=== PATIENT | female | born 1995 | race Caucasian/White ===

== ENCOUNTER 2018-04-02 11:53 | Emergency (ER) | payer OTHER, SELFPAY ==
[2018-04-02 11:55] VITALS: BP 165/90; PULSE 125; RESP 16; TEMP 36.6; O2SAT 95; BMI 40.7
[2018-04-02] MEDS: 0.9% Normal Saline 1,000 ML 1000 ML IV (12:48)
[2018-04-02 13:02] LABS: Prothrombin Time (Protime)PT. 13.6 SECONDS (11.7-14.9)
[2018-04-02 13:03] LABS: Partial Thromboplast Time 26.7 Seconds (24.1-36.2)
[2018-04-02 13:08] LABS: Absolute Lymphocyte Count 1.79 X10^3/ul (0.83-4.51); Absolute Neutrophil Count 3.8 X10^3/uL (2.0-7.7); Basophil# 0.02 X10^3/uL; Basophil% 0.3 % (0-1); Eosinophil# 0.16 X10^3/uL; Eosinophils% 2.6 % (0-5); Hematocrit 35.8 % (37-47); Lymphocyte # 1.79 X10^3/ul (4.0); Lymphocyte % 28.9 % (19-41); Mean Corp Hgb Conc 30.7 g/gl (32-36); Mean Corpuscular Hgb 25.6 pg (27.0-32.0); Mean Corpuscular Volume 83.3 fL (81-99); Mean Platelet Vol. 11.9 fl (6.2-12.0); Monocyte# 0.46 X10^3/uL; Monocyte% 7.4 % (0-10); Neutrophil # 3.76 X10^3/uL (2.7-7.7); Neutrophil % 60.6 % (47-70); POSITIVE COUNT NO; POSITIVE DIFFERENTIAL NO; POSITIVE MORPHOLOGY NO; Platelet Count 195 K/mm3 (150-450); RBC Distribution Width CV 15.1 % (11.6-14.6); White Blood Count 6.2 K/mm3 (4.4-11.0)
[2018-04-02 13:11] LABS: Anion Gap 8 (5-15); BUN 7 mg/dL (7-18); BUN/Creat Ratio 10.1 RATIO (10-20); Calcium,Total 9.1 mg/dL (8.5-10.1); Chloride 112 mmol/L (98-107); Creatinine, Serum 0.69 mg/dL (0.55-1.02); EST Glomerular Filtration Rate 114 mL/min (>60); Est Glom Filt Rate - Afr Amer 138 mL/min (>60); Glucose 101 mg/dL (74-106); Potassium 4.2 mmol/L (3.5-5.1); Sodium Level 144 mmol/L (136-145)
[2018-04-02 13:16] LABS: Pregnancy, Serum, hCG Quali. NEGATIVE Negative (0-9 Nonpreg)
--- NOTE | 2018-04-02 14:01 | ED.DCSUM_ITS ---
- ER Visit Summary Date of Service: 04/02/18 Chief Complaint: Vaginal bleeding History of Present Illness: The patient is a 23 F with a history of irregular periods and problems with intermittent menorrhagia. She is scheduled to see Dr. Santiago next week. Patient reports a 2-week history of vaginal bleeding got very heavy over the past 2 days. She was having a lot of cramping 2 days ago, but is not having significant pain now. She called the office today and was advised to come to the emergency room. Physical Examination: Vital signs include a blood pressure of 165/90 with a heart rate of 125. Patient sitting upright in bed no acute distress. Head neck examination normal. Heart is regular but tachycardic. Lungs sounds clear. Abdomen is soft with no tenderness. Test Results: CBC was normal white count hemoglobin 11.0. No prior values available for comparison. Chemistry studies, coags, and test are all unremarkable. Emergency Department Course and Treatment: After IV fluids repeat heart rate is 96. I spoke with daughter Pamela and patient is to keep her appointment next week. Treatment Plan: [] Disposition: Discharge Impression: Menorrhagia This note was generated with [employer] dictation software. It may contain incorrect words, spelling, and punctuation that were not noted in review of the chart prior to signing ED Disposition - Plan for ED Patient: Chief Complaint: Vag Bleeding Referrals: Sohail Calderon MD [Primary Care Provider] -
--- NOTE | 2018-04-02 14:01 | ED.DEP ---
ED Disposition - Plan for ED Patient: Disposition: Home or Assisted Living Chief Complaint: Vag Bleeding Instructions: ED Bleeding Menstrual Heavy Referrals: Sohail Calderon MD [Primary Care Provider] - Mariaa Borrero MD [STAFF PHYSICIAN] - Keep Ziyad appointment
[2018-04-02 14:04] VITALS: PULSE 94; RESP 16; O2SAT 94
== END 2018-04-02 14:05 | disposition home or self-care (01) ==
PROVIDERS: Emergency Provider Emergency Medicine; Family Provider Family Medicine; PCP Family Medicine
DX: N92.0 Excessive and frequent menstruation with regular cycle (principal); Z72.0 Tobacco use
CPT/HCPCS: 80048; 84703; 85025; 85610; 85730; 96360; 99283; J7030; A4216

== ENCOUNTER → 2019-07-26 13:50 | Outpatient (CLI) | payer OTHER, SELFPAY ==
[2019-07-26 09:35] VITALS: BMI 40.6
[2019-07-26 16:21] LABS: Chlamydia Trachomatis by PCR Negative (Negative); Neisserai gonorrhoeae by PCR Negative (Negative); Probe Check PASS; Sample Adequacy Control PASS; Specimen Processing Control PASS
[2019-07-29 18:57] LABS: HPV Reflexed? NOT INDICATED
== END ==
PROVIDERS: PCP Family Medicine; Referring Provider Nurse Practitioner Women's Health; Visit Provider Nurse Practitioner Women's Health
DX: A64 Unspecified sexually transmitted disease (principal); Z12.4 Encounter for screening for malignant neoplasm of cervix
CPT/HCPCS: 87491; 87591; 88175; G0145

== ENCOUNTER → 2019-11-04 13:33 | Outpatient (CLI) | payer OTHER, SELFPAY ==
[2019-11-04 11:55] VITALS: BMI 40.6
[2019-11-07 16:08] LABS: Chlamydia By Nucleic Acid AMP Positive (Negative)
[2019-11-08 04:48] LABS: Gonococcus By Nucleic Acid AMP Negative (Negative)
== END ==
PROVIDERS: PCP Family Medicine; Visit Provider Obstetrics & Gynecology
DX: O09.90 Supervision of high risk pregnancy, unspecified, unspecified trimester (principal); Z3A.00 Weeks of gestation of pregnancy not specified
CPT/HCPCS: 87491; 87591

== ENCOUNTER → 2019-11-10 14:48 | Outpatient (CLI) | payer OTHER, SELFPAY ==
[2019-11-04 11:55] VITALS: BMI 40.6
[2019-11-10 15:22] LABS: Absolute Lymphocyte Count 1.27 X10^3/uL (0.83-4.51); Absolute Neutrophil Count 4.2 X10^3/uL (2.0-7.7); Basophil# 0.03 X10^3/uL; Basophil% 0.5 % (0-1); Eosinophil# 0.09 X10^3/uL; Eosinophils% 1.5 % (0-5); Hematocrit 36.1 % (37-47); Hemoglobin 11.1 g/dL (12.0-15.0); Lymphocyte # 1.27 X10^3/ul (4.0); Lymphocyte % 21.1 % (19-41); Mean Corp Hgb Conc 30.7 g/dL (32-36); Mean Corpuscular Hgb 23.5 pg (27.0-32.0); Mean Corpuscular Volume 76.3 fL (81-99); Mean Platelet Vol. 11.8 fl (6.2-12.0); Monocyte# 0.41 X10^3/uL; Monocyte% 6.8 % (0-10); NRBC Flagged by Analyzer 0 % (0-5); Neutrophil % 69.8 % (47-70); Platelet Count 175 K/mm3 (150-450); RBC Distribution Width CV 17.7 % (11.6-14.6); RBC Distribution Width SD 48.2 fl (35.1-43.9); Red Blood Count 4.73 M/mm3 (4.2-5.4)
[2019-11-10 15:38] LABS: Glucose Challenge Gest 1H 50g 134 mg/dL (70-140)
[2019-11-11 11:46] LABS: HIV - WCH Non-Reactive (Nonreactive); Hepatitis B Surface Antigen Non-Reactive (Nonreactive); Hepatitis C Antibody Non-Reactive (Nonreactive); Rubella IgG 91.9 IU/mL
[2019-11-17 01:33] LABS: Rapid Plasmin Reagin (RPR) NONREACTIVE (NONREACTIVE)
== END ==
PROVIDERS: PCP Family Medicine; Referring Provider Obstetrics & Gynecology; Visit Provider Obstetrics & Gynecology
DX: O09.90 Supervision of high risk pregnancy, unspecified, unspecified trimester (principal); Z3A.00 Weeks of gestation of pregnancy not specified
CPT/HCPCS: 36415; 82950; 85025; 86592; 86703; 86762; 86803; 86850; 86900; 86901; 87340

== ENCOUNTER → 2019-11-30 17:07 | Outpatient (CLI) | payer OTHER, SELFPAY ==
[2019-11-30 09:09] VITALS: BMI 40.6
[2019-11-30 18:54] LABS: Amphetamine Urine VISTA NEGATIVE (<1000 ng/mL); Barbiturate Urine VISTA NEGATIVE (< 200 ng/mL); Benzodiazepine Urine VISTA NEGATIVE (< 200 ng/mL); Cocaine Urine VISTA NEGATIVE (< 300 ng/mL); Ecstacy Urine VISTA NEGATIVE (< 500 ng/mL); Methadone Urine VISTA NEGATIVE (< 300 ng/mL); PCP Urine VISTA NEGATIVE (< 25 ng/mL); THC Urine VISTA NEGATIVE (< 50 ng/mL); Vista UDS pH Range 7
== END ==
PROVIDERS: PCP Family Medicine; Referring Provider Obstetrics & Gynecology; Visit Provider Obstetrics & Gynecology
DX: O09.90 Supervision of high risk pregnancy, unspecified, unspecified trimester (principal); Z3A.00 Weeks of gestation of pregnancy not specified
CPT/HCPCS: 80307; 87086; 87088

== ENCOUNTER → 2020-03-21 10:14 | Outpatient (CLI) | payer OTHER, SELFPAY ==
[2020-03-21 09:52] VITALS: BMI 38.9
[2020-03-21 10:42] LABS: Absolute Neutrophil Count 5.8 X10^3/uL (2.0-7.7); Basophil# 0.02 X10^3/uL; Basophil% 0.3 % (0-1); Eosinophil# 0.08 X10^3/uL; Hematocrit 34.6 % (37-47); Hemoglobin 11.7 g/dL (12.0-15.0); Mean Corp Hgb Conc 33.8 g/dL (32-36); Mean Corpuscular Hgb 30.8 pg (27.0-32.0); Mean Corpuscular Volume 91.1 fL (81-99); Mean Platelet Vol. 11.9 fl (6.2-12.0); Monocyte# 0.38 X10^3/uL; NRBC Flagged by Analyzer 0 % (0-5); POSITIVE MORPHOLOGY YES; Platelet Count 158 K/mm3 (150-450); RBC Distribution Width CV 13.4 % (11.6-14.6); RBC Distribution Width SD 44.5 fl (35.1-43.9); White Blood Count 7.6 K/mm3 (4.4-11.0)
[2020-03-21 10:43] LABS: Differential Indicated SCAN CRITERIA MET
[2020-03-21 10:52] LABS: Glucose Challenge Gest 1H 50g 140 mg/dL (70-140)
[2020-03-21 10:55] LABS: Differential Comment SCANNED
== END ==
PROVIDERS: PCP Family Medicine; Referring Provider Obstetrics & Gynecology; Visit Provider Obstetrics & Gynecology
DX: O09.90 Supervision of high risk pregnancy, unspecified, unspecified trimester (principal); Z13.1 Encounter for screening for diabetes mellitus; Z3A.00 Weeks of gestation of pregnancy not specified
CPT/HCPCS: 36415; 82950; 85025

== ENCOUNTER → 2020-03-29 09:40 | Outpatient (CLI) | payer OTHER, SELFPAY ==
[2020-03-21 09:52] VITALS: BMI 38.9
[2020-03-29 10:52] LABS: Glucose GTT-Gestation. Fasting 76 mg/dL (<105)
[2020-03-29 11:28] LABS: Glucose GTT-Gestational 1 Hr 139 mg/dL (<190)
[2020-03-29 12:52] LABS: Glucose GTT-Gestational 2 Hr 89 mg/dL (<165)
[2020-03-29 13:55] LABS: Glucose GTT-Gestational 3 Hr 105 L (<145)
== END ==
PROVIDERS: PCP Family Medicine; Referring Provider Obstetrics & Gynecology; Visit Provider Obstetrics & Gynecology
DX: O99.810 Abnormal glucose complicating pregnancy (principal); Z3A.00 Weeks of gestation of pregnancy not specified
CPT/HCPCS: 36415; 82951; 82952

== ENCOUNTER → 2020-05-24 13:01 | Outpatient (CLI) | payer OTHER, SELFPAY ==
[2020-05-24 10:25] VITALS: BMI 40.5
== END ==
PROVIDERS: PCP Family Medicine; Referring Provider Obstetrics & Gynecology; Visit Provider Obstetrics & Gynecology
DX: O09.90 Supervision of high risk pregnancy, unspecified, unspecified trimester (principal); Z3A.00 Weeks of gestation of pregnancy not specified
CPT/HCPCS: 87081

== ENCOUNTER → 2020-06-06 14:13 | Outpatient (CLI) | payer OTHER, SELFPAY ==
[2020-06-06 09:51] VITALS: BMI 40.6
== END ==
PROVIDERS: PCP Family Medicine; Visit Provider Obstetrics & Gynecology
DX: Z11.59 Encounter for screening for other viral diseases (principal)
CPT/HCPCS: 87635; C9803; U0002

== ENCOUNTER 2020-06-20 18:55 | Inpatient (IN) | payer OTHER, SELFPAY ==
[2020-06-18 11:01] VITALS: BMI 41.0
[2020-06-20 19:34] VITALS: BP 137/80; PULSE 97
[2020-06-20 19:40] VITALS: PULSE 86; TEMP 36.8; O2SAT 96
[2020-06-20 19:43] VITALS: BMI 39.7
[2020-06-20 19:57] VITALS: BP 130/75; PULSE 85
[2020-06-20] MEDS: Lactated Ringers 1,000 ML 50 ML IV (20:00)
[2020-06-20 20:16] LABS: Basophil# 0.02 X10^3/uL; Basophil% 0.3 % (0-1); Eosinophil# 0.02 X10^3/uL; Eosinophils% 0.3 % (0-5); Hematocrit 32.5 % (37-47); Hemoglobin 10.6 g/dL (12.0-15.0); Lymphocyte % 16.5 % (19-41); Mean Corp Hgb Conc 32.6 g/dL (32-36); Mean Corpuscular Hgb 30.3 pg (27.0-32.0); Mean Corpuscular Volume 92.9 fL (81-99); Mean Platelet Vol. 12.8 fl (6.2-12.0); Monocyte# 0.51 X10^3/uL; Monocyte% 7.7 % (0-10); NRBC Flagged by Analyzer 0 % (0-5); Neutrophil # 4.96 X10^3/uL (2.7-7.7); Neutrophil % 74.6 % (47-70); Platelet Count 160 K/mm3 (150-450); RBC Distribution Width CV 13.1 % (11.6-14.6); RBC Distribution Width SD 43.9 fl (35.1-43.9); White Blood Count 6.7 K/mm3 (4.4-11.0)
[2020-06-20] MEDS: Oxytocin 30 units/NS 500 ml 30 UNITS/500 ML IV.SOLN IV (20:55)
[2020-06-20 21:01] VITALS: BP 133/73; PULSE 88; TEMP 36.8
--- NOTE | 2020-06-20 22:08 | HP.PCM_ITS ---
- Problem List (1) Encounter for induction of labor Status: Acute (2) 36 weeks gestation of Status: Acute Comment: electronic covid test ordered 05/22/20 (3) Abnormal glucose affecting Status: Acute Comment: NL 3gtt (4) Choroid plexus cyst of fetus Status: Acute Comment: right 5.1 x 5.8 x 5.4mm. declines genetic testing. (5) History of tetanus, diphtheria, and acellular pertussis booster vaccination (Tdap) Status: Acute Comment: 03/21/20 (6) Influenza vaccination declined Status: Acute (7) Lab test positive for detection of COVID-19 virus Status: Acute Comment: ASA 81mg daily (8) Obesity affecting Status: Acute Qualifiers: Comment: Early 1h gtt nl. encouraged healthy weight gain. (9) Status: Acute Qualifiers: Comment: NIPT, carrier, and NTD screening declined after further discussion. anatomy reviewed (10) Supervision of high risk , antepartum Status: Acute Comment: PRR KEITH 06/16/20 girl Cruz SHANTELL not involved. 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 OB Visit KEITH Calculator Estimated Delivery Date Method Current WG Current Estimate 06/16/20 Ultrasound #1 40w 2d Other Estimates 06/06/20 LMP (Certain) 41w 5d Expected Delivery Route/Plan Labor Preferences- CB/BF classes: encouraged labor support person: Kristen(sister) labor intervention preferences: open to standard interventions pain management options preferred: epidural cut cord/catch: cord, maybe deliver : no PP control planned: OCPs discussed possible routes of delivery and associated risks: discussed possible delivery modalities and possible indications for each including R/B/A of , VAVD, FAVD, and CS. questions answered. special requests: none Specific Issue/Plans flu vaccine: declines tdap vaccine: given rhogam: na LARC form signed: yes movement and labor precautions reviewed. Problem list reviewed and updated with the most current plan of care details and appropriate orders placed. Relevant counseling for the gestational age provided. Continue routine care and follow up unless otherwise noted in visit notes/problem list details Initial Weight: 248 lb Date EGA Weight BP Urine Prot Glucose FHR FuHt Pres Dilation Effaced St Visit Note 11/30/19 11w 4d 245 lb (-3 lb) 134/86 168 GP - KEITH based on US done last visit. No cramping or bleeding. 12/29/19 15w 5d 240 lb (-8 lb) 138/84 Trace Negative 150 SM- no vb cramping 01/25/20 19w 4d 245 lb 6 oz (-2 lb 10 oz) 134/76 Negative Negative 145 GP - no cramping or bleeding. Anatomy scan tomorrow - planning gender reveal dinner with her family. 02/23/20 23w 5d 242 lb (-6 lb) 115/76 115/76 Negative Negative 145 SM- no vb lof good fm no regular ctx 03/21/20 27w 4d 249 lb (+16 oz) 134/74 Negative 1000 g/dL 149 29 MH-NO VB, LOF. Good FM. 28 wk labs, tdap, LARC 04/04/20 29w 4d 250 lb 4 oz (+2 lb 4 oz) 120/76 Negative Negative 150 30 GP - no LOF, VB, DFM, ctx. 3h GCT nl. 04/19/20 31w 5d 248 lb 8 oz (+8 oz) 110/80 Negative Negative 145 32 SM- no vb lof good fm no regular ctx 05/03/20 33w 5d 251 lb (+3 lb) 122/76 145 34 Sm- no vb lof good fm no regular ctx 05/17/20 35w 5d 255 lb 2 oz (+7 lb 2 oz) 122/76 Negative Negative 145 35 GP - no LOF, VB, DFM, regular ctx. Discussed labor preferences and routes of delivery. 05/24/20 36w 5d 259 lb (+11 lb) 108/73 Negative Negative 145 37 Cephalic 0.5 SM- no vb lof good fm no regular ctx gbs done 05/31/20 37w 5d 261 lb (+13 lb) 118/82 140 38 Cephalic SM- no vb lof good fm n reuglar ctx 06/06/20 38w 4d 260 lb (+12 lb) 120/78 1+ Negative 140 39 Cephalic GP - no LOF, VB, DFM, ctx. Denies complaints. 06/18/20 40w 2d 262 lb (+14 lb) Negative Negative 130 40 Cephalic 1 50 -3 GP - no LOF, VB, DFM, ctx . IOL scheduled 06/20 ACOG First Trimester First Trimester: Discussed Second Trimester Second Trimester: Signs and Symptoms of Labor, Selecting a care provider, Reproductive Life Planning, Care Planning, Depression/Anxiety and Intimate Partner Violence; discussed Tobacco Cessation Diagnostics Diagnostics Diagnostics Gest Glucose Tolerance MG/DL 03/29/20 Glucose 1 Hr 50 gm 140 mg/dL (70-140) 03/21/20 Hgb 11.7 g/dL (12.0-15.0) L 03/21/20 Hct 34.6 % (37-47) L 03/21/20 Details: HIV: Urine Culture: Sequential Screen: NIPT Screen: [employer] system reviewed and no additional complaints, except as docu Eyes Reports system reviewed and no additional complaints, except as docu ENT Reports system reviewed and no additional complaints, except as docu Card Reports system reviewed and no additional complaints, except as docu Resp Reports system reviewed and no additional complaints, except as docu GI Reports system reviewed and no additional complaints, except as docu Reports system reviewed and no additional complaints, except as docu, Denies abnormal vaginal bleeding, Denies painful urination, Denies pelvic pain, Denies vaginal discharge, Denies vaginal odor, Denies vaginal itching Musc Reports system reviewed and no additional complaints, except as docu Skin/Breast Reports system reviewed and no additional complaints, except as docu Neuro Yes system reviewed and no additional complaints, except as docu Psych Reports system reviewed and no additional complaints, except as docu Endo Reports system reviewed and no additional complaints, except as docu Exam Const General: cooperative, healthy appearing, comfortable, no acute distress, well developed, well groomed Nutritional Appearance: average body habitus, well nourished Orientation: alert, awake, oriented x3 [facility] Head: normal to inspection, normocephalic, atraumatic Eyes Pupils: PERRL, accommodation normal Resp Effort & Inspection: normal respiratory effort, able to speak in complete sentences, symmetric chest movement Cardio Rate: regular rate GI Palpation: soft, no guarding, no masses, nontender Skin General: no rashes or lesions noted, elasticity normal, turgor normal Neuro General: alert, awake, oriented x3 Cranial Nerves: CN's II-XI intact bilaterally, sense of smell intact, PERRL, accommodation normal, EOM intact bilaterally Speech: speech normal Gait: normal gait Psych Appearance: grossly normal, well kempt Mental Status: mental status grossly normal Mood: congruent mood Affect: normal affect Speech and Movement: speech and movement normal Attitude: cooperative Thought Process: normal Thought Content: normal Judgment: judgment good Results POC Urinalysis 2 Dip (Clinic) Office Urine Glucose Negative Last Edit by Irma Garsia on 06/18/20 11:11 Office Urine Protein Negative Last Edit by Irma Garsia on 06/18/20 11:11 Assessment & Plan Problems 1. Lab test positive for detection of COVID-19 virus U07.1 ASA 81mg daily 2. 36 weeks gestation of Z3A.36 electronic covid test ordered 05/22/20 3. Abnormal glucose affecting O99.810 NL 3gtt 4. History of tetanus, diphtheria, and acellular pertussis booster vaccination (Tdap) Z92.29 03/21/20 5. Influenza vaccination declined Z28.21 6. Obesity affecting in third trimester O99.213 Early 1h gtt nl. encouraged healthy weight gain. 7. Choroid plexus cyst of fetus right 5.1 x 5.8 x 5.4mm. declines genetic testing. 8. Supervision of high risk , antepartum O09.90 PRR KEITH 06/16/20 girl Cruz STINSON not involved. Kristen- sister is support person 9. 40 weeks gestation of Z3A.40 NIPT, carrier, and NTD screening declined after further discussion. anatomy reviewed Patient presents IOL, plan management for with pitocin/AROM. Pain management: plans epidural. GBS negative. Management of any complications: none I have reviewed the [facility] and made any clinically relevant updates. UPDATE- I have seen the patient and performed any clinically relevant updates to the history and physical exam. Caryl Hernandez MD
[2020-06-20 22:41] VITALS: BP 123/80; PULSE 80; TEMP 36.6
[2020-06-20 23:49] VITALS: BP 129/67; PULSE 86; TEMP 37.1
[2020-06-21] VITALS (65 sets, daily range): BP systolic 106–149; BP diastolic 53–101; PULSE 74–128; TEMP 35.8–37.4; O2SAT 92–100
[2020-06-21] MEDS: Lactated Ringers 500 ML 999 ML IV ×2 (00:42→11:18)
[2020-06-21] MEDS: fentaNYL-bupivacaine (epidural) 100 ML BAG EPIDURAL ×4 (01:46→16:23)
[2020-06-21] MEDS: Lactated Ringers 1,000 ML 200 ML IV ×3 (04:20→15:35)
[2020-06-21 18:13] LABS: Chlamydia Trachomatis by PCR Negative (Negative); Neisserai gonorrhoeae by PCR Negative (Negative); Probe Check PASS; Sample Adequacy Control PASS; Specimen Processing Control PASS
[2020-06-21] MEDS: Oxytocin 30 units/NS 500 ml 30 UNITS/500 ML IV.SOLN 334 UNITS IV (20:01)
[2020-06-21] MEDS: Methylergonovine 0.2 MG/ML Ampul IM (20:04)
--- NOTE | 2020-06-21 21:19 | OP.PCM_ITS ---
Problem List (1) Encounter for induction of labor Status: Acute (2) 36 weeks gestation of Status: Acute Comment: electronic covid test ordered 05/22/20 (3) Abnormal glucose affecting Status: Acute Comment: NL 3gtt (4) Choroid plexus cyst of fetus Status: Acute Comment: right 5.1 x 5.8 x 5.4mm. declines genetic testing. (5) History of tetanus, diphtheria, and acellular pertussis booster vaccination (Tdap) Status: Acute Comment: 03/21/20 (6) Influenza vaccination declined Status: Acute (7) Lab test positive for detection of COVID-19 virus Status: Acute Comment: ASA 81mg daily (8) Obesity affecting Status: Acute Qualifiers: Comment: Early 1h gtt nl. encouraged healthy weight gain. (9) Status: Acute Qualifiers: Comment: NIPT, carrier, and NTD screening declined after further discussion. anatomy reviewed (10) Supervision of high risk , antepartum Status: Acute Comment: PRR KEITH 06/16/20 girl Cruz STINSON not involved. Kristen- sister is support person Vaginal Delivery Maternal Presentation: Medically Indicated Induction 25-year-old at 40 weeks gestation admitted for induction of labor for late term and maternal obesity. Patient was induced with Pitocin. Patient had been pushing for 4 hours with good maternal effort and was becoming exhausted. The recommendation was made to proceed with a forceps assisted vaginal delivery. Patient voiced understanding and agreed to proceed. Method of Induction: Pitocin Medical Reason for Induction: Maternal Medical Condition: list: - Obesity, Post term Amniotic Membrane Rupture Type: Artificial Amniotic Fluid Description: Clear Final KEITH: 06/16/20 Gestational age: 40 Weeks and 5 Days Date of Procedure: 06/21/20 Pre-Operative Diagnosis: Term , induction for late term and obesity, maternal exhaustion Post-Operative Diagnosis: Same, mild shoulder dystocia Surgery/ Procedure Performed: Forceps Assisted Vaginal Delivery Type of Anesthesia: Epidural Description of Procedure: Patient was pushing with deep variable decelerations with pushing. Recommendation was made to proceed with a forceps assisted vaginal delivery. The maternal bladder had just been changed and Lozano catheter was removed. Additional help was called to the room. Soils Analyst was called to the room. Anesthesia level was found to be adequate. Jacob-Krista forceps were applied without difficulty and placement was noted to be correct. The head delivered with 1 contractions 1 pulls. The head was delivered atraumatically and no nuchal cord was noted. At this point, turtle sign was noted and difficulty was noted in delivery of the anterior arm. The shoulders were noted to be transverse and did not restitute correctly. The room was notified of the presence of a shoulder dystocia. Amy maneuver was performed and suprapubic pressure was applied. Anterior Guanako maneuver was performed with successful delivery of the anterior then posterior shoulders. No excessive force was used at any point. Total time from delivery of head to delivery of shoulder was 50 seconds. The rest of the infant was delivered and the cord was clamped and cut and the infant was taken to the warmer. Gentle traction was applied to the cord and the placenta delivered spontaneously immediately following it was noted to be intact with three-vessel cord. The perineum and vagina were inspected and a midline 3c perineal laceration was noted. The internal anal sphincter was repaired in a running fashion using 3-0 Vicryl Rapide suture. The external anal sphincter was reapproximated using 4 [id number] of 2-0 Vicryl suture. The second portion of the repair was repaired in the standard fashion using 3-0 Vicryl Rapide suture. Multiple [id number] of 2-0 Vicryl were employed to obtain hemostasis. Uterine atony was noted during the repair and the patient was given 1 dose of IM Methergine. EBL was 400 cc. Patient and infant tolerated delivery well. The events of the delivery were discussed with the patient. Given that this was a mild shoulder dystocia and was likely related to the way the shoulders restituted, I feel that the patient would be a good candidate for a vaginal delivery in the future. Presentation: Vertex, MINI Placental Delivery Description: Spontaneous Placenta Disposition: [facility] Cord Vessel Description: 3 Vessels Cord Entanglement: None Drain: Lozano to straight drain Estimated Blood Loss: 400 Infant A gender: Female Episiotomy Description: None Laceration: Midline, Perineal Extension/lac, 3rd degree Medications given after delivery: IV Pitocin, IM Methergin Complications: - - Mild shoulder dystocia Multi Select Codes - Urinary/Genital Urinary/Genital CPT Codes: 28979 Vaginal Delivery global pkg - Forceps assisted
--- NOTE | 2020-06-21 21:27 | DCINST_ITS ---
Discharge Diet: No Restrictions Discharge Activity: Return to Normal Activity, May not drive while taking narcotic pain medications., May Shower May resume sexual activity in: 4-6 weeks Additional Activity Instructions:: Nothing in the vagina for 4-6 weeks. You may return to work/school in 6 weeks. Call your doctor if your incision/area has: Continuous Slow Oozing, Sudden Increased Bleeding, Increased Pain/ Swelling, Increased Redness, Foul Smelling Discharge Additional Instructions: If you experience any of the following, contact your healthcare provider. * Bleeding that soaks a pad every hour for 2 hours * Fever 100.4 or higher * Unrelieved incision or abdominal pain * Swelling, redness, discharge or bleeding from your incision or episiotomy site * Your incision begins to separate * Problems urinating (including inability to urinate or burning while urinating). * Visual changes * Severe headache * Flu-like symptoms * Pain or redness in one of both of your breasts * Pain, warmth, tenderness or swelling in your legs, especially the calf area * Frequent nausea and vomiting * Symptoms of depression or anxiety If you experience any of the following, call 911 or go to the nearest Emergency Room. * Chest pain * Problems breathing * Seizure activity * Partial or complete paralysis of a body part, slurred speech, weakness or drooping of the face, or a sudden inability to walk or hold your balance Allergies/Adverse Reactions: Allergies No Known Allergies Allergy (Verified 06/20/20 19:44) Medications to take at Discharge Famotidine [Pepcid] 20 mg PO DAILY 06/20/20 Ferrous Sulfate [Iron] 325 mg PO DAILY 06/20/20 Pnv No.103/Folic/Om3s/Fish Oil [ Gummies] 1 tablet PO DAILY 06/20/20 When: Call to make an appointment with your doctor in 6 weeks. If you had elevated Blood Pressure or 4th degree laceration you will need to be seen in 2 weeks. Primary Care Physician: Sohail Calderon MD [Primary Care Provider] - Test Results: Test results from this visit will be discussed in further detail at your follow- up appointment, if applicable.
[2020-06-21] MEDS: Docusate Sodium 100 MG Capsule PO (22:09)
[2020-06-21] MEDS: Acetaminophen 500 MG Tablet 1000 MG PO (22:09)
[2020-06-22] VITALS (7 sets, daily range): BP systolic 107–131; BP diastolic 61–85; PULSE 81–100; RESP 16–18; TEMP 35.9–37
[2020-06-22] MEDS: Naproxen 250 MG Tablet 500 MG PO (03:04)
[2020-06-22] MEDS: Acetaminophen 500 MG Tablet 1000 MG PO (06:22)
[2020-06-22] MEDS: Famotidine 20 MG Tablet PO (11:03)
[2020-06-22] MEDS: Docusate Sodium 100 MG Capsule PO ×2 (11:03→21:48)
--- NOTE | 2020-06-22 12:41 | PN.OBGYN_ITS ---
Patient Problems: Active and Suspected Problems (Last Reviewed 06/18/20 @ 11:01 by Irma Garsia) History of tetanus, diphtheria, and acellular pertussis booster vaccination (Tdap) (Acute) 03/21/20 Influenza vaccination declined (Acute) Subjective: Patient doing well without complaints. Tolerating PO. Ambulating and voiding wit hout difficulty. Breast feeding well. Denies chest pain, shortness of breath, calf pain/swelling, fevers, chills, lightheadedness. - Physical Exam Vitals/I&O's: Vital Signs Temp Pulse Resp BP Pulse Ox 96.7 F L 83 18 107/66 98 06/22/20 11:01 06/22/20 11:01 06/22/20 11:06/22/20 11:01 06/21/20 19:32 Oxygen Delivery Method Room Air Weight: 254 lb Body Mass Index (BMI) 39.7 Intake and Output for Last 24 Hours 06/20/20 06/21/20 06/22/20 23:59 23:59 23:59 Intake Total 11.87 / 11.87 5622.58 / 5622.58 Output Total 850 / 850 1020 / 1020 Balance 11.87 / 11.87 4772.58 / 4772.58 -1020 / -1020 General: Alert, Oriented x3, Cooperative, No apparent distress, Well developed, Well nourished HEENT: Atraumatic, PERRLA, EOMI, Normocephalic Neck: Supple, No JVD Lungs: Normal air movement Cardiovascular: Regular rate Abdomen: Soft, Non Tender, Non-Distended, - - fundus firm Extremities: No edema, No Calf Tenderness Neurological: Cranial nerves II-XII grossly intact, Neuro grossly intact Psych/Mental Status: Normal Affect, Appropriate Laboratory Results 06/21/20 14:55: Chlam trachomat DNA PCR Negative, N.gonorrhoeae DNA (PCR) Negative Current Medications Acetaminophen (Acetaminophen 500 Mg Tablet) 1,000 mg PO Q8H PRN PRN PRN Reason: Pain Score 1-3 Last Admin: 06/22/20 06:22 Dose: 1,000 mg Documented by: Bisacodyl (Bisacodyl 10 Mg Suppository) 10 mg RC UD PRN PRN Reason: If no BM Dibucaine (Dibucaine 30 Gm Tube) 1 applic TOPICAL TID PRN PRN; Protocol PRN Reason: Discomfort Docusate Sodium (Docusate Sodium 100 Mg Capsule) 100 mg PO BID [facility] Last Admin: 06/22/20 11:03 Dose: 100 mg Documented by: Famotidine (Famotidine 20 Mg Tablet) 20 mg PO DAILY [facility] Last Admin: 06/22/20 11:03 Dose: 20 mg Documented by: Hydrocortisone (Hydrocortisone 2.5% Crm) 1 applic TOPICAL TID PRN PRN; Protocol PRN Reason: Discomfort Methylergonovine Maleate (Methylergonovine 0.2 Mg/Ml Ampul) 0.2 mg IM X1 PRN PRN Reason: Excess bleeding/uterine atony Last Admin: 06/21/20 20:04 Dose: 0.2 mg Documented by: Naproxen (Naproxen 250 Mg Tablet) 500 mg PO Q8H PRN PRN PRN Reason: Pain Score 1-3 Last Admin: 06/22/20 03:04 Dose: 500 mg Documented by: Ondansetron HCl (Ondansetron 4 Mg/2 Ml Vial) 4 mg IV Q4H PRN PRN PRN Reason: Nausea Oxycodone HCl (Oxycodone 5 Mg Tablet) 5 - 10 mg PO Q4H PRN PRN PRN Reason: Pain Score 4-10 Senna/Docusate Sodium (Senna/Docusate Sodium 1 Tablet) 1 - 2 tablet PO DAILY PRN PRN PRN Reason: Constipation Simethicone (Simethicone 80 Mg Tablet) 80 mg PO PCHS PRN PRN Reason: Indigestion/Stomach pain Sodium Chloride (0.9% Saline Lock 10 Ml Syringe) 5 - 15 ml IV UD PRN PRN Reason: SALINE FLUSH Medical Necessity - Tobacco Use Smoking Status: Former smoker Assessment/Plan All Active Problems (Last Reviewed 06/18/20 @ 11:01 by Irma Garsia) History of tetanus, diphtheria, and acellular pertussis booster vaccination (Tdap) (Acute) Influenza vaccination declined (Acute) 36 weeks gestation of (Resolved) Abnormal glucose affecting (Resolved) Choroid plexus cyst of fetus (Resolved) Encounter for induction of labor (Resolved) Lab test positive for detection of COVID-19 virus (Resolved) Obesity affecting (Resolved) (Resolved) Supervision of high risk , antepartum (Resolved) s/p PPD # 1 1. routine post delivery care 2. breast feeding- support given 3. rh positive 4. rubella immune
[2020-06-23 01:55] VITALS: BP 112/52; PULSE 84; RESP 18; TEMP 36.7
--- NOTE | 2020-06-23 08:50 | PN.OBGYN_ITS ---
Patient Problems: Active and Suspected Problems (Last Reviewed 06/18/20 @ 11:01 by Irma Garsia) History of tetanus, diphtheria, and acellular pertussis booster vaccination (Tdap) (Acute) 03/21/20 Influenza vaccination declined (Acute) Subjective: Patient doing well without complaints. Tolerating PO. Ambulating and voiding wit hout difficulty. Breast feeding well. Denies chest pain, shortness of breath, calf pain/swelling, fevers, chills, lightheadedness. - Physical Exam Vitals/I&O's: Vital Signs Temp Pulse Resp BP Pulse Ox 98.0 F 84 18 112/52 L 98 06/23/20 01:55 06/23/20 01:55 06/23/20 01:55 06/23/20 01:55 06/21/20 19:32 Oxygen Delivery Method Room Air Weight: 254 lb Body Mass Index (BMI) 39.7 Intake and Output for Last 24 Hours 06/21/20 06/22/20 06/23/20 23:59 23:59 23:59 Intake Total 5622.58 / 5622.58 Output Total 850 / 850 1020 / 1020 Balance 4772.58 / 4772.58 -1020 / -1020 General: Alert, Oriented x3, Cooperative, No apparent distress, Well developed, Well nourished HEENT: Atraumatic, PERRLA, EOMI, Normocephalic Neck: Supple, No JVD Lungs: Normal air movement Cardiovascular: Regular rate Abdomen: Soft, Non Tender, Non-Distended, - - fundus firm Extremities: No edema, No Calf Tenderness Neurological: Cranial nerves II-XII grossly intact, Neuro grossly intact Psych/Mental Status: Normal Affect, Appropriate Current Medications Acetaminophen (Acetaminophen 500 Mg Tablet) 1,000 mg PO Q8H PRN PRN PRN Reason: Pain Score 1-3 Last Admin: 06/22/20 06:22 Dose: 1,000 mg Documented by: Bisacodyl (Bisacodyl 10 Mg Suppository) 10 mg RC UD PRN PRN Reason: If no BM Dibucaine (Dibucaine 30 Gm Tube) 1 applic TOPICAL TID PRN PRN; Protocol PRN Reason: Discomfort Docusate Sodium (Docusate Sodium 100 Mg Capsule) 100 mg PO BID MELANIE Last Admin: 06/22/20 21:48 Dose: 100 mg Documented by: Famotidine (Famotidine 20 Mg Tablet) 20 mg PO DAILY MELANIE Last Admin: 06/22/20 11:03 Dose: 20 mg Documented by: Hydrocortisone (Hydrocortisone 2.5% Crm) 1 applic TOPICAL TID PRN PRN; Protocol PRN Reason: Discomfort Methylergonovine Maleate (Methylergonovine 0.2 Mg/Ml Ampul) 0.2 mg IM X1 PRN PRN Reason: Excess bleeding/uterine atony Last Admin: 06/21/20 20:04 Dose: 0.2 mg Documented by: Naproxen (Naproxen 250 Mg Tablet) 500 mg PO Q8H PRN PRN PRN Reason: Pain Score 1-3 Last Admin: 06/22/20 03:04 Dose: 500 mg Documented by: Ondansetron HCl (Ondansetron 4 Mg/2 Ml Vial) 4 mg IV Q4H PRN PRN PRN Reason: Nausea Oxycodone HCl (Oxycodone 5 Mg Tablet) 5 - 10 mg PO Q4H PRN PRN PRN Reason: Pain Score 4-10 Senna/Docusate Sodium (Senna/Docusate Sodium 1 Tablet) 1 - 2 tablet PO DAILY P RN PRN PRN Reason: Constipation Simethicone (Simethicone 80 Mg Tablet) 80 mg PO PCHS PRN PRN Reason: Indigestion/Stomach pain Sodium Chloride (0.9% Saline Lock 10 Ml Syringe) 5 - 15 ml IV UD PRN PRN Reason: SALINE FLUSH Medical Necessity - Tobacco Use Smoking Status: Former smoker Assessment/Plan All Active Problems (Last Reviewed 06/18/20 @ 11:01 by Irma Garsia) History of tetanus, diphtheria, and acellular pertussis booster vaccination (Tdap) (Acute) Influenza vaccination declined (Acute) 36 weeks gestation of (Resolved) Abnormal glucose affecting (Resolved) Choroid plexus cyst of fetus (Resolved) Encounter for induction of labor (Resolved) Lab test positive for detection of COVID-19 virus (Resolved) Obesity affecting (Resolved) (Resolved) Supervision of high risk , antepartum (Resolved) s/p PPD # 2 1. routine post delivery care 2. breast feeding- support given 3. rh positive 4. rubella immune
[2020-06-23 10:15] VITALS: BP 129/73; PULSE 100; RESP 18; TEMP 36.7
[2020-06-23] MEDS: Docusate Sodium 100 MG Capsule PO (11:15)
[2020-06-23] MEDS: Famotidine 20 MG Tablet PO (11:15)
--- NOTE | 2020-06-23 11:40 | CASEMGMT ---
Social Work Brief Assessment Labor and Delivery Unit Refer documentation below for further details. Date of Referral/Notification: 06/22/20 Time of Referral: 04:02 Referred By: Dr. Hernandez Reason for Referral: FOB not involved, resources Date of Intervention: 06/23/20 Time of Intervention: 11:40 Informant: Medical record and mother of baby (MOB) Assessment: Met with MOB and MOB's sister in room. Introduced role. MOB open to talking with this worker. MOB discussed FOB not being involved and states good support from family. MOB denies any safety concerns or needs for referrals. MOB denies any mental health or substance abuse. MOB reports to have all needs met for baby. Discussed safe sleeping, shaken baby, and signs/symptoms of post- depression and provided resources. MOB getting ready for discharge and discussed being excited to get home. Discussed referral with nurse. Nursing reports no concerns and states MOB able to care for baby and bonding well. Plan: Home with resources provided No further needs requested or indicated. Gonzalo Goodman, RN IV THERAPY, FIRE PREVENTION CAPTAIN
--- NOTE | 2020-06-23 12:14 | NURSING ---
Pt. very appropriate with this am. Was alone through night in room with , and as understood from overnight cashier, was very attentive to babe through the night. Pt. very attentive this am - was still feeding infant small amounts as she was told initially to not let infant eat more than 15 cc, and was unaware that she was allowed to feed more than that. Encouraged to feed more as infant wanted, and reviewed that although born with very small stomachs, they stretch very quickly. Pt. verbalized understanding and was glad to be able to feed more and glad that infant appeared more satisfied after this feed. Sister here around 1000 to take pt. home before she had to go to work. Pt. looking forward to going home, reports that her father is very eager to see the baby - lots of smiles about getting home. Very attentive when talking about shaken baby syndrome and baby blues and verbalized understanding about having plans and to call OB if struggling at all.
== END 2020-06-23 12:05 | disposition home or self-care (01) | DRG 768 ==
PROVIDERS: Admitting Provider Obstetrics & Gynecology; PCP Family Medicine; Visit Provider Obstetrics & Gynecology
DX: O66.0 Obstructed labor due to shoulder dystocia (principal); Z37.0 Single live birth; O70.23 Third degree perineal laceration during delivery, IIIc; O76 Abnormality in fetal heart rate and rhythm complicating labor and delivery; O99.214 Obesity complicating childbirth; Z3A.40 40 weeks gestation of pregnancy; O99.334 Smoking (tobacco) complicating childbirth; O35.8XX0 Maternal care for other (suspected) fetal abnormality and damage, not applicable or unspecified; F17.200 Nicotine dependence, unspecified, uncomplicated; O75.81 Maternal exhaustion complicating labor and delivery; O62.2 Other uterine inertia
CPT/HCPCS: 59025; 59050; 85025; 86850; 86900; 86901; 87491; 87591; 99218; J7120; G0378

== ENCOUNTER 2020-07-05 02:24 | Emergency (ER) | payer OTHER, SELFPAY ==
[2020-07-05 02:24] VITALS: BP 138/77; PULSE 89; RESP 18; TEMP 36.1; O2SAT 94; BMI 35.4
[2020-07-05 03:04] LABS: Absolute Lymphocyte Count 2.13 X10^3/uL (0.83-4.51); Basophil# 0.04 X10^3/uL; Basophil% 0.6 % (0-1); Eosinophil# 0.23 X10^3/uL; Eosinophils% 3.4 % (0-5); Hematocrit 35.5 % (37-47); Hemoglobin 11.4 g/dL (12.0-15.0); Lymphocyte # 2.13 X10^3/ul (0.83-4.51); Lymphocyte % 31.8 % (19-41); Mean Corp Hgb Conc 32.1 g/dL (32-36); Mean Corpuscular Hgb 29.6 pg (27.0-32.0); Mean Corpuscular Volume 92.2 fL (81-99); Monocyte# 0.29 X10^3/uL; Monocyte% 4.3 % (0-10); NRBC Flagged by Analyzer 0 % (0-5); Neutrophil # 3.96 X10^3/uL (2.7-7.7); Neutrophil % 59.3 % (47-70); Platelet Count 244 K/mm3 (150-450); RBC Distribution Width CV 12.2 % (11.6-14.6); RBC Distribution Width SD 41.1 fl (35.1-43.9); Red Blood Count 3.85 M/mm3 (4.2-5.4); White Blood Count 6.7 K/mm3 (4.4-11.0)
[2020-07-05 03:12] LABS: Anion Gap 9 (5-15); BUN 10 mg/dL (7-18); Calcium,Total 9.6 mg/dL (8.5-10.1); Chloride 108 mmol/L (98-107); Creatinine, Serum 0.83 mg/dL (0.55-1.02); EST Glomerular Filtration Rate 90 mL/min (>60); Est Glom Filt Rate - Afr Amer 109 mL/min (>60); Estimated Creatinine Clearance 102.51 ml/min; Glucose 107 mg/dL (74-106); Potassium 3.2 mmol/L (3.5-5.1); Sodium Level 140 mmol/L (136-145)
--- NOTE | 2020-07-05 03:25 | ED.VIS.GI ---
HPI HPI - GI History of Present Illness Chief Complaint: Abd Pain Informant: patient and parent Abdominal Pain/Flank Pain Onset: Days (3-4) Context: Gradual Onset Timing: Continuous and Waxes and wanes Quality: Aching Location: RUQ, LUQ and - (both sides initially, sometimes more on left, now mostly right) Current Severity: Mild Maximum Severity: Severe Worsened by: Movement (but not worse in any certain positions); Not Worsened By Food Relieved by: - (possibly by Tylenol taken MEDICAL RESEARCHER tonight) Nausea/Vomiting/Emesis GI Symptom: Negative for Nausea and Vomiting Diarrhea/Melena/Hematochezia GI Symptom: Negative for Diarrhea, Melena and Hematochezia Associated Symptoms Associated Symptoms: Negative for Dysuria, Frequency, Hematuria and Urgency Narrative Narrative: Patient is about 2 weeks status post spontaneous vaginal delivery, she states it was complicated by a third-degree tear that was repaired as well as shoulder dystocia but baby is doing fine. She has been having tapering mild vaginal bleeding since then, it is still been present and not resolved and tonight it got noticeably worse but still less than a menstrual cycle. She called her OBs office the day after this pain started, she was advised to continue taking Tylenol which she did and helped, but has not been seen before coming here tonight. She presents around 3 AM for these complaints, when ultrasound is not available. PFSH PFSH Home Medications PNV [id number] oil 1 tablet PO DAILY 06/20/20 [History Last Taken Unknown] famotidine 20 mg PO DAILY 06/20/20 [History Last Taken Unknown] ferrous sulfate 325 mg PO DAILY 06/20/20 [History Last Taken Unknown] docusate sodium 100 mg PO BID #60 capsule 06/23/20 [Rx Last Taken Unknown] naproxen 250 - 500 mg PO Q8H PRN PRN #30 tab 06/23/20 [Rx Last Taken Unknown] Allergy/AdvReac Type Severity Reaction Status Date / Time No Known Allergies Allergy Verified 07/05/20 02:27 Family History Grandmother Diabetes Heart disease Grandfather Skin cancer Social History sexually active: Yes Smoking Status: Former smoker details: occasionally substance use type: does not use caffeine: Yes what type of physical activity do you participate in: none seatbelt use: always do you feel safe at home: Yes 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 See HPI. ; Denies dysuria, hematuria or urinary frequency Musculoskeletal Musculoskeletal: Denies back pain or neck pain Integumentary Denies abscess or rash Neurologic Neurologic: Denies headache(s), paresthesias or weakness Psychiatric Psychiatric: Denies anxiety or suicidal thoughts EXAM Physical Exam Const Vital Signs: 07/05/20 02:24 Temperature 97 F L Temperature Source Temporal Pulse Rate 89 Respiratory Rate 18 Blood Pressure 138/77 H Blood Pressure Mean 97 Pulse Ox 94 Oxygen Delivery Method Room Air Positive well nourished and well developed General Appearance ED: well developed, NAD and other Well-appearing, conversive in full sentences HEENT Reports moist mucous membranes normocephalic and atraumatic Eyes PERRL and EOMs intact bilaterally Neck full ROM and supple Resp normal respiratory effort and clear to auscultation bilaterally Cardio regular rate, regular rhythm and no murmurs GI non-distended Auscultation: normoactive bowel sounds Palpation: soft and tender RUQ (Only. No other tenderness.); Negative for guarding or rebound tenderness present Back/Spine no CVA tenderness General Back: other FROM Extremity normal to inspection General Extremety ED: Negative for edema, pulses abnormal or tenderness General Extremity: Negative for edema or pulses abnormal Neuro oriented x3, CN's II-XII intact bilaterally and no sensory deficits noted Sensorium / Orientation: awake and alert Motor Exam: strength 5/5 throughout Psych mental status grossly normal, thought process normal, cooperative, affect normal and speech normal Skin no rashes or lesions noted and no wounds MDM MDM MDM Narrative Medical decision making narrative: Patient continues to feel relatively well and did not have worsening of her pain or vaginal bleeding. Her labs as below are unremarkable except for hypokalemia, I gave her a dose of oral potassium but she does confirm that prior to coming here she really was hyperventilating when she was very uncomfortable and in pain. Therefore this may have simply been due to shift from an acute respiratory alkalosis. I did a bedside ultrasound of her gallbladder. She was tender right over the gallbladder. The gallbladder wall measures around 0.2 cm. There is a nonshadowing abnormality in the lumen of the gallbladder that does not look like a stone, the neck appears to be normal and clear, without stones. I did not see any pericholecystic fluid. However the tenderness here as well as some of her symptoms suggest that this could be the etiology. Her liver enzymes and lipase were within normal limits and she has no leukocytosis and is feeling well. I do not think she needs to be admitted at this time. Ultrasounds not available right now, so we are setting her up with 1 as an outpatient with results to go to her doctor, and she is advised to follow-up. We discussed reasons to return. She is comfortable with that plan. Also advised to follow-up with her OB concerning the bleeding, but I suspect the increased bleeding tonight was probably unrelated to her right upper quadrant pain. Lab Data Attestation: I reviewed the patient's lab results. Labs: Laboratory Results - last 24 hr 07/05/20 07/05/20 07/05/20 02:37 02:37 02:37 WBC 6.7 RBC 3.85 L Hgb 11.4 L Hct 35.5 L MCV 92.2 MCH 29.6 MCHC 32.1 RDW Std Deviation 41.1 RDW Coeff of Brigido 12.2 Plt Count 244 MPV 11.0 Immature Gran % (Auto) 0.600 Neut % (Auto) 59.3 Lymph % (Auto) 31.8 Angelina % (Auto) 4.3 Eos % (Auto) 3.4 Baso % (Auto) 0.6 Absolute Neuts (auto) 4.0 Absolute Lymphs (auto) 2.13 Nucleated RBC % 0 Sodium 140 139 Potassium 3.2 L 3.1 L Chloride 108 H 107 Carbon Dioxide 23.0 24.0 Anion Gap 9 8 BUN 10 9 Creatinine 0.83 0.79 Estim Creat Clear Calc 102.51 107.70 Est GFR (MDRD) Af Amer 109 116 Est GFR (MDRD) Non-Af 90 95 BUN/Creatinine Ratio 12.0 11.4 Glucose 107 H 105 Calcium 9.6 9.5 Total Bilirubin 0.30 AST 12 L ALT 11 L Alkaline Phosphatase 117 Total Protein 7.3 Albumin 3.2 Globulin 4.1 Albumin/Globulin Ratio 0.8 L Lipase 58 L Urine Color Urine Clarity Urine pH Ur Specific [place] Urine Protein Urine Glucose (UA) Urine Ketones Urine Occult Blood Urine Nitrite Urine Bilirubin Urine Urobilinogen Ur Leukocyte Esterase Urine RBC Urine WBC Ur Squamous Epith Cells Urine Bacteria Urine Mucus 07/05/20 04:20 WBC RBC Hgb Hct MCV MCH MCHC RDW Std Deviation RDW Coeff of Brigido Plt Count MPV Immature Gran % (Auto) Neut % (Auto) Lymph % (Auto) Angelina % (Auto) Eos % (Auto) Baso % (Auto) Absolute Neuts (auto) Absolute Lymphs (auto) Nucleated RBC % Sodium Potassium Chloride Carbon Dioxide Anion Gap BUN Creatinine Estim Creat Clear Calc Est GFR (MDRD) Af Amer Est GFR (MDRD) Non-Af BUN/Creatinine Ratio Glucose Calcium Total Bilirubin AST ALT Alkaline Phosphatase Total Protein Albumin Globulin Albumin/Globulin Ratio Lipase Urine Color Pat Urine Clarity Cloudy Urine pH 6.0 Ur Specific [place] 1.010 Urine Protein 30 H Urine Glucose (UA) Normal Urine Ketones 5 H Urine Occult Blood 250 H Urine Nitrite Negative Urine Bilirubin Negative Urine Urobilinogen 1 H Ur Leukocyte Esterase 500 H Urine RBC 50-100 SEEN Urine WBC 10-25 SEEN Ur Squamous Epith Cells 0-5 SEEN Urine Bacteria 0 SEEN Urine Mucus 0 SEEN Discharge Plan Triage Chief Complaint: Abd Pain ED Provider: Mike Webster Dx/Rx/DC Orders Clinical Impression: Right upper quadrant abdominal pain Instructions: ED Abdominal Pain Gallstone Poss Prescriptions: No Action famotidine 20 MG tablet 20 mg PO DAILY RF: 0 ferrous sulfate 325 MG tablet 325 mg PO DAILY RF: 0 PNV 462-[id number]-3-fish oil 1 EACH tablet,chewable 1 tablet PO DAILY RF: 0 naproxen 250 MG tablet 250 - 500 mg PO Q8H PRN PRN (Reason: MILD PAIN) Qty: 30 RF: 1 docusate sodium 100 MG capsule 100 mg PO BID Qty: 60 RF: 3 Primary Care Provider: Sohail Calderon Referrals: Sohail Calderon MD [Primary Care Provider] - As soon as possible (After ultrasound obtained) Activity Restrictions/Additional Instructions: May be helpful to avoid fatty foods so that you are not in pain. If you develop a fever, intractable pain or vomiting, return to the ER for further evaluation. Otherwise, follow-up for the gallbladder ultrasound and then after that with your doctor for results and further evaluation. Disposition Disposition: Home, self care
[2020-07-05 03:48] LABS: ALB/GLOB Ratio 0.8 RATIO (0.9-2.4); AST(SGOT) 12 U/L (15-37); Alanine Aminotransfer ALT/SGPT 11 U/L (13-56); Albumin, Serum 3.2 g/dL (3.2-5.0); Alkaline Phosphatase 117 U/L (45-117); Anion Gap 8 (5-15); BUN 9 mg/dL (7-18); BUN/Creat Ratio 11.4 RATIO (10-20); Calcium,Total 9.5 mg/dL (8.5-10.1); Chloride 107 mmol/L (98-107); Creatinine, Serum 0.79 mg/dL (0.55-1.02); EST Glomerular Filtration Rate 95 mL/min (>60); Est Glom Filt Rate - Afr Amer 116 mL/min (>60); Globulin 4.1 g/dL (2.2-4.2); Glucose 105 mg/dL (74-106); Lipase 58 U/L (73-393); Potassium 3.1 mmol/L (3.5-5.1); Protein, Total 7.3 g/dL (6.4-8.2); Sodium Level 139 mmol/L (136-145)
[2020-07-05 04:27] LABS: Bacteria 0 SEEN /hpf (None Seen); Mucous, Urine 0 SEEN /hpf (<or=2+)
[2020-07-05 04:28] LABS: Color, Urine Amber (Yellow); Glucose, Dipstick Normal (Normal); Ketone-Dipstick 5 mg/dl (Negative); Leukocyte Esterase-Dipstick 500 /ul (Negative); Nitrite-Dipstick Negative (Negative); Occult Blood-Urine 250 /ul (Negative); Protein-Dipstick 30 mg/dl (Negative); Urine Bilirubin Dipstick Negative (Negative); Urine Clarity Cloudy (Clear); Urine Urobilinogen 1 mg/dl (Normal)
[2020-07-05 04:34] LABS: Red Blood Cells-Urine 50-100 SEEN /hpf (0-5); Squamous Epithelial Cells - UA 0-5 SEEN /hpf (5-10); White Blood Cells 10-25 SEEN /hpf (0-5)
[2020-07-05] MEDS: Potassium Chloride Oral Tablet 20 MEQ 40 MEQ PO (05:16)
[2020-07-05 05:18] VITALS: BP 128/81; PULSE 86; RESP 16; O2SAT 98
--- NOTE | 2020-07-06 07:00 | US_ITS ---
STUDY: ABDOMINAL ULTRASOUND - RIGHT UPPER QUADRANT REASON FOR VISIT: Female, 25 years old. Right upper quadrant pain. TECHNIQUE: Ultrasound evaluation of the right upper quadrant was performed with real-time and static vang-scale imaging. TECHNICAL QUALITY: Adequate. COMPARISON: None. FINDINGS: Liver: The liver measures 18.5 cm. There is increased echogenicity consistent with fatty infiltration. The bile ducts are within normal limits. There is hepatic color flow. The direction of portal flow is hepatopetal. There is no demonstrated mass lesion. Gallbladder: Normal distended gallbladder. The gallbladder wall measures 2 mm. There is a positive sonographic Hinkle''s sign. There is no pericholecystic fluid. There are multiple echogenic structures within the gallbladder, consistent with multiple gallstones. There is sludge noted in the gallbladder. Common Bile Duct (C.B.D.): The common bile duct measures 3 mm. Pancreas: Normal size of the head, body and tail of the pancreas. There is normal echogenicity of the pancreas. There is no demonstrated pancreatic mass or cyst. Right Kidney: Normal size of the right kidney. The right kidney measures 11.3 cm. Normal renal cortex. There is no demonstrated renal mass or cyst. There is no right hydronephrosis. US/Gallbladder IMPRESSION: Gallbladder sludge and stones. No pericholecystic fluid or gallbladder wall thickening. Therefore, there are no definite sonographic findings of acute cholecystitis. However, please note that the plans examiner reported a positive sonographic Hinkle''s sign. If there is persistent concern for acute cholecystitis, consider further evaluation with a nuclear medicine hepatobiliary study. Enlarged, fatty liver. Electronically Signed: Franklin Castaneda MD at 8:09 EDT Tel , Service support ,
== END 2020-07-05 05:21 | disposition home or self-care (01) ==
PROVIDERS: Emergency Provider Emergency Medicine; PCP Family Medicine
DX: R10.11 Right upper quadrant pain (principal); Z87.891 Personal history of nicotine dependence
CPT/HCPCS: 76705; 80048; 80053; 81001; 83690; 85025; 99285; A4216

== ENCOUNTER → 2020-07-06 07:09 | Outpatient (CLI) | payer OTHER, SELFPAY ==
[2020-07-05 02:24] VITALS: BMI 35.4
== END ==
PROVIDERS: PCP Family Medicine; Referring Provider Emergency Medicine; Visit Provider Emergency Medicine
DX: R10.11 Right upper quadrant pain (principal)
CPT/HCPCS: 76705

== ENCOUNTER → 2020-07-10 17:18 | Outpatient (CLI) | payer OTHER, SELFPAY ==
[2020-07-05 02:24] VITALS: BMI 35.4
--- NOTE | 2020-07-10 17:20 | RAD_ITS ---
EXAM: XR ABDOMEN, 2 VIEWS AND XR CHEST, 1 VIEW : 1995 CLINICAL INDICATION: ABD PAIN TECHNIQUE: Frontal view of the chest, frontal view of the abdomen/pelvis and upright or decubitus view of the abdomen. This report was created using [employer] report generation technology. COMPARISON: None. FINDINGS: CHEST: LUNGS AND PLEURAL SPACES: Unremarkable. No consolidation or edema. No pneumothorax. No effusion. HEART: Unremarkable. Cardiac silhouette not enlarged. MEDIASTINUM: Central airways and mediastinal contour are unremarkable. ABDOMEN: INTRAPERITONEAL SPACE: No free air. GASTROINTESTINAL TRACT: Unremarkable. Non-obstructive. No bowel or stomach distention. ORGANS: Unremarkable as visualized. No organomegaly. No abnormal calcifications. TUBES, LINES AND DEVICES: None. BONES/JOINTS: No acute findings. SOFT TISSUES: No acute findings. RAD/Acute Abdomen Inc Chest IMPRESSION: Negative chest and abdominal series. at 0221 Reported and signed by: Farhad Munoz MD Electronically Signed: Farhad Munoz MD at 2:20 EDT Tel , Service support ,
== END ==
PROVIDERS: PCP Family Medicine; Referring Provider Family Medicine; Visit Provider Family Medicine
DX: R10.11 Right upper quadrant pain (principal)
CPT/HCPCS: 74022

== ENCOUNTER 2020-07-23 19:33 | Observation (INO) | payer OTHER, SELFPAY ==
[2020-07-23 19:33] VITALS: BP 148/77; PULSE 88; RESP 16; TEMP 36.7; O2SAT 98; BMI 35.2
--- NOTE | 2020-07-23 20:17 | CT_ITS ---
STUDY: CTA CHEST REASON FOR EXAM: Female, 25 years old. r/o pe RADIATION DOSAGE (If Supplied By Facility): CTDIvol = ( 17.01 ) mGy, DLP = ( 1980.58 ) mGycm TECHNIQUE: The examination was performed with the intravenous administration of IV 100mL Isovue-370. Post-processing of the angiographic images was performed, with multiplanar reformation and 3D reconstruction. Individualized dose optimization techniques were used for this CT. COMPARISON: None. FINDINGS: Normal enhancement of the main pulmonary artery and right and left pulmonary arteries. Normal enhancement of the bilateral peripheral pulmonary arteries. There is no demonstrated pulmonary embolism. Normal thoracic aorta and visualized great vessels. There is no demonstrated aortic dissection. Normal heart and pericardium. Normal mediastinum. Normal hilar regions. Normal visualized trachea and bronchi. The lungs are well expanded. Normal pulmonary parenchyma. Normal pleura. Normal chest wall structures. Normal osseous structures. Normal visualized upper abdomen. CT/CTA Chest W/WO Contrast IMPRESSION: Normal CTA chest examination, without a demonstrated pulmonary embolism or arterial dissection. Electronically Signed: Eyal Sheffield MD at 21:52 EDT , Service support ,
[2020-07-23 20:38] LABS: Absolute Lymphocyte Count 1.39 X10^3/uL (0.83-4.51); Absolute Neutrophil Count 4.5 X10^3/uL (2.0-7.7); Basophil# 0.02 X10^3/uL; Basophil% 0.3 % (0-1); Eosinophil# 0.14 X10^3/uL; Eosinophils% 2.2 % (0-5); Hematocrit 33.8 % (37-47); Hemoglobin 10.6 g/dL (12.0-15.0); Lymphocyte # 1.39 X10^3/ul (0.83-4.51); Lymphocyte % 21.7 % (19-41); Mean Corp Hgb Conc 31.4 g/dL (32-36); Mean Corpuscular Hgb 27.7 pg (27.0-32.0); Mean Corpuscular Volume 88.5 fL (81-99); Monocyte# 0.37 X10^3/uL; Monocyte% 5.8 % (0-10); NRBC Flagged by Analyzer 0 % (0-5); Neutrophil # 4.46 X10^3/uL (2.7-7.7); Neutrophil % 69.7 % (47-70); Platelet Count 323 K/mm3 (150-450); RBC Distribution Width CV 12.9 % (11.6-14.6); RBC Distribution Width SD 41.5 fl (35.1-43.9); Red Blood Count 3.82 M/mm3 (4.2-5.4); White Blood Count 6.4 K/mm3 (4.4-11.0)
[2020-07-23] MEDS: Morphine 4 MG/ML Syringe IV (20:46)
[2020-07-23] MEDS: Ondansetron 4 MG/2 ML Vial IV (20:46)
[2020-07-23 20:50] LABS: ALB/GLOB Ratio 0.9 RATIO (0.9-2.4); AST(SGOT) 137 U/L (15-37); Alanine Aminotransfer ALT/SGPT 110 U/L (13-56); Albumin, Serum 3.6 g/dL (3.2-5.0); Alkaline Phosphatase 142 U/L (45-117); Anion Gap 6 (5-15); BUN 9 mg/dL (7-18); BUN/Creat Ratio 10.2 RATIO (10-20); Calcium,Total 9.3 mg/dL (8.5-10.1); Chloride 111 mmol/L (98-107); Creatinine, Serum 0.88 mg/dL (0.55-1.02); EST Glomerular Filtration Rate 84 mL/min (>60); Est Glom Filt Rate - Afr Amer 102 mL/min (>60); Estimated Creatinine Clearance 96.69 ml/min; Globulin 3.8 g/dL (2.2-4.2); Glucose 107 mg/dL (74-106); Potassium 3.4 mmol/L (3.5-5.1); Protein, Total 7.4 g/dL (6.4-8.2); Sodium Level 141 mmol/L (136-145)
--- NOTE | 2020-07-23 21:00 | CT_ITS ---
STUDY: CT ABDOMEN AND PELVIS WITH CONTRAST REASON FOR EXAM: Female, 25 years old. abdominal pain RADIATION DOSAGE (If Supplied By Facility): CTDIvol = ( 17.01 ) mGy, DLP = ( 1980.58 ) mGycm TECHNIQUE: Transaxial images were obtained from the dome of the diaphragm to the symphysis pubis without oral contrast. IV 100mL Isovue-370 was administered. Sagittal and coronal images were reconstructed. Individualized dose optimization techniques were used for this CT. COMPARISON: None. FINDINGS: The visualized lung bases are unremarkable. The visualized portions of the heart are within normal limits. There is decreased attenuation of the liver consistent with steatosis. There is fatty liver. Distended gallbladder with no definite stones. Normal spleen. Normal pancreas. Unusual lobulated thick walled fluid collection seen directly under the peritoneal surface in the anterior right upper quadrant along the edge of the liver, 3.7 cm size. There is nonspecific adjacent fat stranding suggestive of inflammatory process. The appearance suggests small abscesses, consider image guided aspiration. See axial image 59 and coronal image 45. Normal bilateral adrenal glands. No definite acute abnormalities of the kidneys. There appear to be numerous small nonobstructing stones in all segments although this is not certain since this exam was performed only with contrast. No hydronephrosis. No masses. Evaluation of the GI tract is limited by absence of oral contrast. Cannot exclude stomach wall thickening. No dilated loops of bowel or evidence for obstruction. Cannot exclude segmental thickening of the bucio of the small or large bowel. Cannot exclude enteritis or colitis. Moderate diffuse fecal retention. Appendix within normal limits. Normal abdominal aorta. Normal inferior vena cava. Normal retroperitoneum. Normal urinary bladder. Normal visualized uterus. Normal abdominal wall. Normal osseous structures. CT/Abdomen/Pelvis W IV Cont ONLY IMPRESSION: Unusual small thick walled fluid density structures along the inferior edge of the liver suspicious for abscesses. See comments above. Fatty liver with hepatomegaly. Possible multiple nonobstructing bilateral renal stones. Electronically Signed: Eyal Sheffield MD at 21:49 EDT , Service support ,
[2020-07-23 22:19] VITALS: BP 135/78; PULSE 82; RESP 16; TEMP 36.6; O2SAT 97
[2020-07-23 22:23] LABS: Bacteria 0 SEEN /hpf (None Seen); Mucous, Urine 0 SEEN /hpf (<or=2+)
[2020-07-23 22:47] LABS: Color, Urine Yellow (Yellow); Glucose, Dipstick Normal (Normal); Ketone-Dipstick 5 mg/dl (Negative); Leukocyte Esterase-Dipstick 500 /ul (Negative); Nitrite-Dipstick Negative (Negative); Occult Blood-Urine 250 /ul (Negative); Protein-Dipstick 30 mg/dl (Negative); Specific Gravity, Urine 1.005 (1.002-1.030); Urine Bilirubin Dipstick Negative (Negative); Urine Clarity Sl. Cloudy (Clear); Urine Urobilinogen 4 mg/dl (Normal)
--- NOTE | 2020-07-23 22:55 | EX.ED.DYSGE1 ---
HPI History of Present Illness Chief Complaint: Abd Pain Informant: patient Narrative Narrative: 25-year-old female presenting with abdominal pain. Patient states she has had intermittent right upper quadrant abdominal pain for the past 3 weeks. She is 1 month . She complains of nausea with no vomiting. She has had work-up for gallbladder disease and has HIDA scan scheduled for Thursday. She states the pain worsened today. She states the pain now is more in her back. She denies shortness of breath. She had Covid in early June. 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 Constitutional Constitutional ED: Denies fever(s) Eyes Eyes: Denies change in vision ENT ENT ED: Denies rhinorrhea or sore throat Cardiovascular Cardiovascular: Denies chest pain or palpitations Respiratory/Chest Respiratory/Chest: Denies cough or dyspnea Gastrointestinal Gastrointestinal: Reports abdominal pain and nausea; Denies diarrhea or vomiting Genitourinary Genitourinary ED: Denies dysuria Musculoskeletal Musculoskeletal: Denies myalgias Integumentary Denies rash Neurologic Neurologic: Denies headache(s) Psychiatric Psychiatric: Denies suicidal thoughts EXAM Physical Exam Const Vital Signs: 07/23/20 19:33 07/23/20 22:19 Temperature 98.0 F 98 F Temperature Source Temporal Temporal Pulse Rate 88 82 Respiratory Rate 16 16 Blood Pressure 148/77 H 135/78 H Blood Pressure Mean 100 97 Pulse Ox 98 97 Oxygen Delivery Method Room Air Room Air Positive well nourished and well developed General Appearance ED: well developed HEENT Reports normocephalic and head/scalp atraumatic Eyes PERRL and EOMs intact bilaterally Neck supple General: Negative for tenderness Chest Wall inspection of chest normal Resp normal respiratory effort and clear to auscultation bilaterally Cardio regular rate and regular rhythm GI Palpation: soft and tender RUQ; Negative for guarding or rebound tenderness present no CVA tenderness Extremity normal to inspection Neuro oriented x3 Sensorium / Orientation: alert Psych mental status grossly normal MDM MDM MDM Narrative Medical decision making narrative: Patient is not breast-feeding. She was given morphine, Zofran IV. Lab work was reviewed. Urinalysis shows 10-25 white blood cells, 0-5 red blood cells. AST 137, ALT 110, alk phos 142. CTA chest is unremarkable. CT abdomen pelvis shows unusual small thick walled fluid density structures along inferior edge of liver suspicious for abscesses. Blood and urine cultures were sent. Patient was given Zosyn IV. Discussed with hospitalist. Patient will be admitted. Lab Data Attestation: I reviewed the patient's lab results. Labs: Laboratory Results - last 24 hr 07/23/20 07/23/20 07/23/20 19:45 19:45 20:55 WBC 6.4 RBC 3.82 L Hgb 10.6 L Hct 33.8 L MCV 88.5 MCH 27.7 MCHC 31.4 L RDW Std Deviation 41.5 RDW Coeff of Brigido 12.9 Plt Count 323 MPV 12.0 Immature Gran % (Auto) 0.300 Neut % (Auto) 69.7 Lymph % (Auto) 21.7 [place] % (Auto) 5.8 Eos % (Auto) 2.2 Baso % (Auto) 0.3 Absolute Neuts (auto) 4.5 Absolute Lymphs (auto) 1.39 Nucleated RBC % 0 Sodium 141 Potassium 3.4 L Chloride 111 H Carbon Dioxide 24.0 Anion Gap 6 BUN 9 Creatinine 0.88 Estim Creat Clear Calc 96.69 Est GFR (MDRD) Af Amer 102 Est GFR (MDRD) Non-Af 84 BUN/Creatinine Ratio 10.2 Glucose 107 H Calcium 9.3 Total Bilirubin 0.50 AST 137 H ALT 110 H Alkaline Phosphatase 142 H Total Protein 7.4 Albumin 3.6 Globulin 3.8 Albumin/Globulin Ratio 0.9 Urine Color Yellow Urine Clarity Sl. Cloudy Urine pH 7.0 Ur Specific [place] 1.005 Urine Protein 30 H Urine Glucose (UA) Normal Urine Ketones 5 H Urine Occult Blood 250 H Urine Nitrite Negative Urine Bilirubin Negative Urine Urobilinogen 4 H Ur Leukocyte Esterase 500 H Urine RBC 0-5 SEEN Urine WBC 10-25 SEEN Ur Squamous Epith Cells 10-25 SEEN Urine Bacteria 0 SEEN Urine Mucus 0 SEEN Radiography Diagnostic Testing: Radiology Impression Chest CTA 07/23/20 20:17 IMPRESSION: Normal CTA chest examination, without a demonstrated pulmonary embolism or arterial dissection. Electronically Signed: Eyal Sheffield MD at 21:52 EDT , Service support , Abdomen/Pelvis CT 07/23/20 21:00 IMPRESSION: Unusual small thick walled fluid density structures along the inferior edge of the liver suspicious for abscesses. See comments above. Fatty liver with hepatomegaly. Possible multiple nonobstructing bilateral renal stones. Electronically Signed: Eyal Sheffield MD at 21:49 EDT , Service support , Discharge Plan Triage Chief Complaint: Abd Pain ED Provider: Lisa Hinton Dx/Rx/DC Orders Clinical Impression: Abscess of liver, Abdominal pain Prescriptions: No Action NK RF: 0 Primary Care Provider: Sohail Calderon Referrals: Sohail Calderon MD [Primary Care Provider] - Disposition Disposition: Acute Care [facility]
[2020-07-23 23:03] LABS: Squamous Epithelial Cells - UA 10-25 SEEN /hpf (5-10); White Blood Cells 10-25 SEEN /hpf (0-5)
[2020-07-23 23:04] LABS: Red Blood Cells-Urine 0-5 SEEN /hpf (0-5)
--- NOTE | 2020-07-23 23:53 | HP.PCM_ITS ---
HPI - General HPI Narrative JOSE GREEN, is a 25 F who presents with increasing right upper quadrant pain. Patient presented to the ER approximately 2 weeks ago with similar complaints. Patient reports that she was scheduled for an outpatient HIDA scan due to gallbladder ultrasound findings of sludge and stones in the gallbladder. Patient states however pain has increasingly gotten worse over the past 2 weeks so she returned to the ER where a CT abdomen pelvis was completed which found unusual small thick-walled fluid density structures along the inferior edge of the liver suspicious for abscesses. Patient states pain upon presentation was a 10 out of 10 and after receiving 1 dose of morphine patient is now manageable at 4 out of 10. Patient received 1 dose of IV Zosyn in ER. [facility] Medical History (Updated 07/23/20 @ 23:59 by CARLOS Redd) History of tetanus, diphtheria, and acellular pertussis booster vaccination (Tdap) Influenza vaccination declined Home Medications NK 07/23/20 [History Last Taken Unknown] Allergy/AdvReac Type Severity Reaction Status Date / Time No Known Allergies Allergy Verified 07/23/20 19:37 Family History Grandmother Diabetes Heart disease Grandfather Skin cancer Social History sexually active: Yes Smoking Status: Current some day smoker details: occasionally substance use type: does not use caffeine: Yes what type of physical activity do you participate in: none seatbelt use: always do you feel safe at home: Yes 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 Constitutional: Denies anorexia, change in weight, chills or fatigue Cardiovascular Cardiovascular: Denies chest pain, edema or palpitations Respiratory/Chest Respiratory/Chest: Denies cough, shortness of breath at rest or shortness of breath with exertion Gastrointestinal Gastrointestinal: Reports abdominal pain and nausea Genitourinary Genitourinary: Denies dysuria or hematuria Musculoskeletal Musculoskeletal: Reports back pain; Denies extremity pain or joint pain Integumentary Integumentary: Denies dry skin Neurologic Neurologic: Denies abnormal gait, abnormal speech, confusion or dizziness Psychiatric Psychiatric: Denies anxiety or depression Endocrine Endocrinology: Denies change in body appearance Hematologic/Lymphatic Hematologic/Lymphatic: Denies easy bleeding or easy bruising Vital Signs Vital Signs Vital Signs: 07/23/20 19:33 07/23/20 22:19 Temperature 98.0 F 98 F Temperature Source Temporal Temporal Pulse Rate 88 82 Respiratory Rate 16 16 Blood Pressure 148/77 H 135/78 H Blood Pressure Mean 100 97 Pulse Ox 98 97 Oxygen Delivery Method Room Air Room Air Physical Exam Const alert and oriented x3 General Appearance: cooperative HEENT normocephalic and head/scalp atraumatic Eyes PERRL Neck supple, no JVD and thyroid normal General: trachea midline Lymph Lymphatic: no lymphadenopathy noted Resp normal respiratory effort, normal air movement and clear to auscultation bilaterally Cardio regular rate, regular rhythm, S1 normal heart sound and S2 normal heart sound GI soft to palpation and non-distended Auscultation: normoactive bowel sounds Palpation: tender RUQ Extremity normal capillary refill and no clubbing, cyanosis or edema General Extremity: no tenderness to palpation of joints or extremities Skin General Skin Exam: no breakdown and turgor normal Lesions: no lesions Rashes: no rashes Neuro CN's II-XII intact bilaterally Psych thought process normal, cooperative and affect normal Appearance: appropriate Lab / Micro Data Result Diagrams: 07/23/20 19:45 07/23/20 19:45 Labs: Laboratory Results - last 24 hr 07/23/20 07/23/20 07/23/20 19:45 19:45 20:55 WBC 6.4 RBC 3.82 L Hgb 10.6 L Hct 33.8 L MCV 88.5 MCH 27.7 MCHC 31.4 L RDW Std Deviation 41.5 RDW Coeff of Brigido 12.9 Plt Count 323 MPV 12.0 Immature Gran % (Auto) 0.300 Neut % (Auto) 69.7 Lymph % (Auto) 21.7 [place] % (Auto) 5.8 Eos % (Auto) 2.2 Baso % (Auto) 0.3 Absolute Neuts (auto) 4.5 Absolute Lymphs (auto) 1.39 Nucleated RBC % 0 Sodium 141 Potassium 3.4 L Chloride 111 H Carbon Dioxide 24.0 Anion Gap 6 BUN 9 Creatinine 0.88 Estim Creat Clear Calc 96.69 Est GFR (MDRD) Af Amer 102 Est GFR (MDRD) Non-Af 84 BUN/Creatinine Ratio 10.2 Glucose 107 H Calcium 9.3 Total Bilirubin 0.50 AST 137 H ALT 110 H Alkaline Phosphatase 142 H Total Protein 7.4 Albumin 3.6 Globulin 3.8 Albumin/Globulin Ratio 0.9 Urine Color Yellow Urine Clarity Sl. Cloudy Urine pH 7.0 Ur Specific [place] 1.005 Urine Protein 30 H Urine Glucose (UA) Normal Urine Ketones 5 H Urine Occult Blood 250 H Urine Nitrite Negative Urine Bilirubin Negative Urine Urobilinogen 4 H Ur Leukocyte Esterase 500 H Urine RBC 0-5 SEEN Urine WBC 10-25 SEEN Ur Squamous Epith Cells 10-25 SEEN Urine Bacteria 0 SEEN Urine Mucus 0 SEEN Radiology Impression Chest CTA 07/23/20 20:17 IMPRESSION: Normal CTA chest examination, without a demonstrated pulmonary embolism or arterial dissection. Electronically Signed: Eyal Sheffield MD at 21:52 EDT , Service support , Abdomen/Pelvis CT 07/23/20 21:00 IMPRESSION: Unusual small thick walled fluid density structures along the inferior edge of the liver suspicious for abscesses. See comments above. Fatty liver with hepatomegaly. Possible multiple nonobstructing bilateral renal stones. Electronically Signed: Eyal Sheffield MD at 21:49 EDT , Service support , Assessment & Plan Assessment/Plan (1) Abscess of liver: (2) Abdominal pain: QUALIFIERS: Abdominal location: right upper quadrant Qualified Code(s): R10.11 - Right upper quadrant pain PLAN: -Admit to [facility] -Pain management regimen including oxycodone and morphine ordered for pain -As needed Zofran for for nausea -CBC and CMP in a.m., trend liver enzymes -Consult interventional radiology for evaluation for drainage of hepatic abscesses -Clear liquid diet at this time -Vital signs and oxygen therapy per protocol -Blood and urine cultures pending -Continue Zosyn every 8 hour IV DVT Prophylaxis-not indicated, observation status This patient was seen by Laurie Caceres NP-C under the supervision of Dr. Dr. Perez.
[2020-07-24 00:08] VITALS: BP 111/66; PULSE 58; RESP 17; TEMP 36.7; O2SAT 98
[2020-07-24 00:48] VITALS: BMI 35.5
[2020-07-24 00:54] VITALS: BP 118/70; PULSE 64; RESP 18; TEMP 36.7; O2SAT 98
[2020-07-24] MEDS: 0.9% Saline Lock 10 ML Syringe IV ×2 (04:59→16:00)
[2020-07-24 05:05] VITALS: BP 106/58; PULSE 67; RESP 16; TEMP 36.5; O2SAT 98
[2020-07-24 06:57] LABS: Absolute Lymphocyte Count 1.21 X10^3/uL (0.83-4.51); Absolute Neutrophil Count 2.6 X10^3/uL (2.0-7.7); Basophil# 0.03 X10^3/uL; Basophil% 0.7 % (0-1); Eosinophil# 0.15 X10^3/uL; Eosinophils% 3.5 % (0-5); Hemoglobin 9.6 g/dL (12.0-15.0); Lymphocyte # 1.21 X10^3/ul (0.83-4.51); Lymphocyte % 28.1 % (19-41); Mean Corpuscular Hgb 27.7 pg (27.0-32.0); Mean Corpuscular Volume 89.3 fL (81-99); Mean Platelet Vol. 11.7 fl (6.2-12.0); Monocyte# 0.35 X10^3/uL; Monocyte% 8.1 % (0-10); NRBC Flagged by Analyzer 0 % (0-5); Neutrophil # 2.56 X10^3/uL (2.7-7.7); Neutrophil % 59.4 % (47-70); Platelet Count 260 K/mm3 (150-450); RBC Distribution Width CV 13.2 % (11.6-14.6); RBC Distribution Width SD 42.7 fl (35.1-43.9); Red Blood Count 3.47 M/mm3 (4.2-5.4); White Blood Count 4.3 K/mm3 (4.4-11.0)
[2020-07-24 07:27] LABS: ALB/GLOB Ratio 0.9 RATIO (0.9-2.4); AST(SGOT) 372 U/L (15-37); Alanine Aminotransfer ALT/SGPT 219 U/L (13-56); Albumin, Serum 2.9 g/dL (3.2-5.0); Alkaline Phosphatase 178 U/L (45-117); Anion Gap 7 (5-15); BUN 9 mg/dL (7-18); BUN/Creat Ratio 13.1 RATIO (10-20); Calcium,Total 8.6 mg/dL (8.5-10.1); Chloride 109 mmol/L (98-107); Creatinine, Serum 0.69 mg/dL (0.55-1.02); EST Glomerular Filtration Rate 112 mL/min (>60); Est Glom Filt Rate - Afr Amer 136 mL/min (>60); Estimated Creatinine Clearance 123.31 ml/min; Globulin 3.3 g/dL (2.2-4.2); Glucose 82 mg/dL (74-106); Potassium 3.8 mmol/L (3.5-5.1); Protein, Total 6.2 g/dL (6.4-8.2); Sodium Level 140 mmol/L (136-145)
[2020-07-24 08:16] VITALS: BP 99/54; PULSE 74; RESP 18; TEMP 36.7; O2SAT 99
--- NOTE | 2020-07-24 08:36 | MRI_ITS ---
STUDY: MR MRCP WITHOUT CONTRAST REASON FOR EXAM: Female, 25 years old. elevated liver enzymes TECHNIQUE: Standard MRCP technique was utilized. COMPARISON: CT 07/23/2020 FINDINGS: Gall Bladder: Multiple tiny gallstones in the dependent portion the gallbladder. There is some pericholecystic fluid but no gallbladder wall thickening. Findings may represent acute cholecystitis. Cystic duct: Normal with no demonstrated fixed filling defect. Intrahepatic ducts: Normal visualized intrahepatic ducts with no demonstrated fixed filling defect, dilation or stricture. Common hepatic duct: Normal with no demonstrated fixed filling defect, dilation or stricture. Common bile duct: Normal with no demonstrated fixed filling defect, dilation or stricture. Pancreatic duct: Normal with no demonstrated fixed filling defect, dilation or stricture. MRI/MRCP Abdomen without Contrast IMPRESSION: Cholelithiasis with possible acute cholecystitis. No MRCP evidence of choledocholithiasis. Electronically Signed: Gopi Foster MD at 10:59 EDT Tel , Service support ,
[2020-07-24 09:28] LABS: Prothrombin Time (Protime)PT. 12.6 SECONDS (11.7-14.9)
--- NOTE | 2020-07-24 09:38 | CON.PCM.SX_ITS ---
Assessment & Plan Assessment/Plan (1) Cholelithiases: QUALIFIERS: Cholelithiasis location: gallbladder and bile duct Cholecystitis presence: without cholecystitis Biliary obstruction: with biliary obstruction Qualified Code(s): K80.71 - Calculus of gallbladder and bile duct without cholecystitis with obstruction (2) Abdominal pain: QUALIFIERS: Abdominal location: right upper quadrant Qualified Code(s): R10.11 - Right upper quadrant pain PLAN: The patient was admitted with abdominal pain which has since subsided. The patient did have nausea as well. Her white count was normal. Th e patient recently had ultrasound which showed sludge and stones in her gallbladder. The patient's LFTs have increased since yesterday and since last month. The CT scan did not show dilated biliary tree. I will order an MRCP today to see if she has any stones in her duct. If she has no stones in her duct I would recommend laparoscopic cholecystectomy tomorrow. If she does have stones in her duct on MRCP I would recommend ERCP tomorrow. I will let her have clear liquids after the scan until midnight. I discussed both options with her and all of her imaging and questions were all answered. After MRCP I will discuss which procedure she will need and go over the risks and benefits with h er. There is also a small fluid collection at the distal edge of the liver. I am unsure if these are abscesses or benign fluid collections. If she does require laparoscopic cholecystectomy I will drain these areas laparoscopically. Kodak Stoner MD Pager: [phone] [address] [place] [address], [address] [place] [address] Office: HPI Consult Data Date of Consult: 07/24/20 HPI Narrative HPI Narrative: JOSE GREEN, is a 25 F who presented to the emergency room. The patient was admitted yesterday with pain that was between her shoulder blades. The patient has CT of the chest which was normal and CT of the abdomen showed a small fluid collection near the liver bed. The patient was admitted and today she says she is not having any pain currently. She did have nausea with this episode of pain. She has been dealing with gallbladder issues for the last few weeks and had an ultrasound at the end of June that showed stones and sludge in her gallbladder. The patient had never had nausea with her episodes in the past. She did recently deliver her baby last month. Patient notes no fevers or chills or vomiting. [facility] Medical History GERD (gastroesophageal reflux disease) History of tetanus, diphtheria, and acellular pertussis booster vaccination (Tdap) Influenza vaccination declined Smoker Home Medications NK 07/23/20 [History Last Taken Unknown] Allergy/AdvReac Type Severity Reaction Status Date / Time No Known Allergies Allergy Verified 07/23/20 19:37 Family History Grandmother Diabetes Heart disease Grandfather Skin cancer Social History sexually active: Yes Smoking Status: Current some day smoker details: occasionally substance use type: does not use caffeine: Yes what type of physical activity do you participate in: none seatbelt use: always do you feel safe at home: Yes 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 Constitutional: 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 anorexia, chills or fatigue Cardiovascular Cardiovascular: Denies chest pain Respiratory/Chest Respiratory/Chest: Denies cough or dyspnea Gastrointestinal Gastrointestinal: Reports abdominal pain and nausea; Denies diarrhea, dysphagia, hematemesis, hematochezia, rectal bleeding or vomiting Musculoskeletal Musculoskeletal: Denies abnormal gait or back pain Integumentary Integumentary: Denies jaundice Neurologic Neurologic: Denies abnormal gait Hematologic/Lymphatic Hematologic/Lymphatic: Denies easy bleeding or easy bruising Physical Exam Const alert and oriented x3 HEENT normocephalic Eyes PERRL Neck full ROM Resp normal respiratory effort Cardio Rate: regular rate Rhythm: regular rhythm GI soft to palpation, non-tender and non-distended Extremity normal to inspection Skin no rashes or lesions noted Neuro CN's II-XII intact bilaterally Lab / Micro Data Result Diagrams: 07/24/20 06:10 07/24/20 06:10 Labs: Laboratory Results - last 24 hr 07/23/20 07/23/20 07/23/20 19:45 19:45 20:55 WBC 6.4 RBC 3.82 L Hgb 10.6 L Hct 33.8 L MCV 88.5 MCH 27.7 MCHC 31.4 L RDW Std Deviation 41.5 RDW Coeff of Brigido 12.9 Plt Count 323 MPV 12.0 Immature Gran % (Auto) 0.300 Neut % (Auto) 69.7 Lymph % (Auto) 21.7 [place] % (Auto) 5.8 Eos % (Auto) 2.2 Baso % (Auto) 0.3 Absolute Neuts (auto) 4.5 Absolute Lymphs (auto) 1.39 Nucleated RBC % 0 PT INR Sodium 141 Potassium 3.4 L Chloride 111 H Carbon Dioxide 24.0 Anion Gap 6 BUN 9 Creatinine 0.88 Estim Creat Clear Calc 96.69 Est GFR (MDRD) Af Amer 102 Est GFR (MDRD) Non-Af 84 BUN/Creatinine Ratio 10.2 Glucose 107 H Calcium 9.3 Total Bilirubin 0.50 AST 137 H ALT 110 H Alkaline Phosphatase 142 H Total Protein 7.4 Albumin 3.6 Globulin 3.8 Albumin/Globulin Ratio 0.9 Urine Color Yellow Urine Clarity Sl. Cloudy Urine pH 7.0 Ur Specific [place] 1.005 Urine Protein 30 H Urine Glucose (UA) Normal Urine Ketones 5 H Urine Occult Blood 250 H Urine Nitrite Negative Urine Bilirubin Negative Urine Urobilinogen 4 H Ur Leukocyte Esterase 500 H Urine RBC 0-5 SEEN Urine WBC 10-25 SEEN Ur Squamous Epith Cells 10-25 SEEN Urine Bacteria 0 SEEN Urine Mucus 0 SEEN 07/24/20 07/24/20 07/24/20 06:10 06:10 09:05 WBC 4.3 L RBC 3.47 L Hgb 9.6 L Hct 31.0 L MCV 89.3 MCH 27.7 MCHC 31.0 L RDW Std Deviation 42.7 RDW Coeff of Brigido 13.2 Plt Count 260 MPV 11.7 Immature Gran % (Auto) 0.200 Neut % (Auto) 59.4 Lymph % (Auto) 28.1 [place] % (Auto) 8.1 Eos % (Auto) 3.5 Baso % (Auto) 0.7 Absolute Neuts (auto) 2.6 Absolute Lymphs (auto) 1.21 Nucleated RBC % 0 PT 12.6 INR 1.0 Sodium 140 Potassium 3.8 Chloride 109 H Carbon Dioxide 24.0 Anion Gap 7 BUN 9 Creatinine 0.69 Estim Creat Clear Calc 123.31 Est GFR (MDRD) Af Amer 136 Est GFR (MDRD) Non-Af 112 BUN/Creatinine Ratio 13.1 Glucose 82 Calcium 8.6 Total Bilirubin 1.30 H AST 372 H ALT 219 H Alkaline Phosphatase 178 H Total Protein 6.2 L Albumin 2.9 L Globulin 3.3 Albumin/Globulin Ratio 0.9 Urine Color Urine Clarity Urine pH Ur Specific [place] Urine Protein Urine Glucose (UA) Urine Ketones Urine Occult Blood Urine Nitrite Urine Bilirubin Urine Urobilinogen Ur Leukocyte Esterase Urine RBC Urine WBC Ur Squamous Epith Cells Urine Bacteria Urine Mucus Radiology Impression Chest CTA 07/23/20 20:17 IMPRESSION: Normal CTA chest examination, without a demonstrated pulmonary embolism or arterial dissection. Electronically Signed: Eyal Sheffield MD at 21:52 EDT , Service support , Abdomen/Pelvis CT 07/23/20 21:00 IMPRESSION: Unusual small thick walled fluid density structures along the inferior edge of the liver suspicious for abscesses. See comments above. Fatty liver with hepatomegaly. Possible multiple nonobstructing bilateral renal stones. Electronically Signed: Eyal Sheffield MD at 21:49 EDT , Service support ,
[2020-07-24 14:00] VITALS: BP 83/40; PULSE 51; RESP 18; TEMP 36.9; O2SAT 100
--- NOTE | 2020-07-24 15:32 | PN.HOSP_ITS ---
Subjective Subjective Patient was seen and examined today, her abdomen is soft, I talked with general surgery today and they recommended an MRCP which was done and showed evidence of acute cholecystitis, no evidence of choledocholithiasis was noted however. Objective Data Objective Data Vital Signs: Vital Signs Temp Pulse Resp BP Pulse Ox 98.1 F 74 18 99/54 L 99 07/24/20 08:16 07/24/20 08:16 07/24/20 08:16 07/24/20 08:16 07/24/20 08:16 Oxygen Delivery Method Room Air Weight: 103 kg Body Mass Index (BMI) 35.5 Intake & Output: Intake and Output for Last 24 Hours 07/22/20 07/23/20 07/24/20 23:59 23:59 23:59 Intake Total 300 / 300 Balance 300 / 300 Lab / Micro Data Result Diagrams: 07/24/20 06:10 07/24/20 06:10 Labs: Laboratory Results - last 24 hr 07/23/20 07/23/20 07/23/20 19:45 19:45 20:55 WBC 6.4 RBC 3.82 L Hgb 10.6 L Hct 33.8 L MCV 88.5 MCH 27.7 MCHC 31.4 L RDW Std Deviation 41.5 RDW Coeff of Brigido 12.9 Plt Count 323 MPV 12.0 Immature Gran % (Auto) 0.300 Neut % (Auto) 69.7 Lymph % (Auto) 21.7 [place] % (Auto) 5.8 Eos % (Auto) 2.2 Baso % (Auto) 0.3 Absolute Neuts (auto) 4.5 Absolute Lymphs (auto) 1.39 Nucleated RBC % 0 PT INR Sodium 141 Potassium 3.4 L Chloride 111 H Carbon Dioxide 24.0 Anion Gap 6 BUN 9 Creatinine 0.88 Estim Creat Clear Calc 96.69 Est GFR (MDRD) Af Amer 102 Est GFR (MDRD) Non-Af 84 BUN/Creatinine Ratio 10.2 Glucose 107 H Calcium 9.3 Total Bilirubin 0.50 AST 137 H ALT 110 H Alkaline Phosphatase 142 H Total Protein 7.4 Albumin 3.6 Globulin 3.8 Albumin/Globulin Ratio 0.9 Urine Color Yellow Urine Clarity Sl. Cloudy Urine pH 7.0 Ur Specific [place] 1.005 Urine Protein 30 H Urine Glucose (UA) Normal Urine Ketones 5 H Urine Occult Blood 250 H Urine Nitrite Negative Urine Bilirubin Negative Urine Urobilinogen 4 H Ur Leukocyte Esterase 500 H Urine RBC 0-5 SEEN Urine WBC 10-25 SEEN Ur Squamous Epith Cells 10-25 SEEN Urine Bacteria 0 SEEN Urine Mucus 0 SEEN 07/24/20 07/24/20 07/24/20 06:10 06:10 09:05 WBC 4.3 L RBC 3.47 L Hgb 9.6 L Hct 31.0 L MCV 89.3 MCH 27.7 MCHC 31.0 L RDW Std Deviation 42.7 RDW Coeff of Brigido 13.2 Plt Count 260 MPV 11.7 Immature Gran % (Auto) 0.200 Neut % (Auto) 59.4 Lymph % (Auto) 28.1 [place] % (Auto) 8.1 Eos % (Auto) 3.5 Baso % (Auto) 0.7 Absolute Neuts (auto) 2.6 Absolute Lymphs (auto) 1.21 Nucleated RBC % 0 PT 12.6 INR 1.0 Sodium 140 Potassium 3.8 Chloride 109 H Carbon Dioxide 24.0 Anion Gap 7 BUN 9 Creatinine 0.69 Estim Creat Clear Calc 123.31 Est GFR (MDRD) Af Amer 136 Est GFR (MDRD) Non-Af 112 BUN/Creatinine Ratio 13.1 Glucose 82 Calcium 8.6 Total Bilirubin 1.30 H AST 372 H ALT 219 H Alkaline Phosphatase 178 H Total Protein 6.2 L Albumin 2.9 L Globulin 3.3 Albumin/Globulin Ratio 0.9 Urine Color Urine Clarity Urine pH Ur Specific [place] Urine Protein Urine Glucose (UA) Urine Ketones Urine Occult Blood Urine Nitrite Urine Bilirubin Urine Urobilinogen Ur Leukocyte Esterase Urine RBC Urine WBC Ur Squamous Epith Cells Urine Bacteria Urine Mucus Micro: Microbiology 07/24/20 12:57 Mucosa - Nasopharyngeal SARS-CoV-2 Antigen (Rapid) - Final Radiography Diagnostic Testing: Radiology Impression Chest CTA 07/23/20 20:17 IMPRESSION: Normal CTA chest examination, without a demonstrated pulmonary embolism or arterial dissection. Electronically Signed: Eyal Sheffield MD at 21:52 EDT , Service support , Abdomen/Pelvis CT 07/23/20 21:00 IMPRESSION: Unusual small thick walled fluid density structures along the inferior edge of the liver suspicious for abscesses. See comments above. Fatty liver with hepatomegaly. Possible multiple nonobstructing bilateral renal stones. Electronically Signed: Eyal Sheffield MD at 21:49 EDT , Service support , MRCP 07/24/20 08:36 IMPRESSION: Cholelithiasis with possible acute cholecystitis. No MRCP evidence of choledocholithiasis. Electronically Signed: Gopi Foster MD at 10:59 EDT Tel , Service support , Physical Exam Const alert, oriented x3, no apparent distress and healthy appearing HEENT head/scalp atraumatic and moist oral mucous membranes Head and Scalp: normocephalic Eyes PERRL and EOMs intact bilaterally Neck no lymphadenopathy, supple and no JVD Resp normal respiratory effort, no retractions, no use of accessory muscles and clear to auscultation bilaterally Cardio regular rate, regular rhythm, S1 normal heart sound, S2 normal heart sound, no gallops and no clicks GI normal to inspection, nondistended, normoactive bowel sounds and soft to palpation Extremity normal to inspection and no clubbing, cyanosis or edema Skin no rashes or lesions noted, no wounds and skin turgor normal Neuro oriented x3, CN's II-XII intact bilaterally, no focal motor deficits and no sensory deficits noted Sensorium / Orientation: awake and alert Psych affect normal Assessment & Plan Assessment/Plan (1) Abdominal pain: QUALIFIERS: Abdominal location: right upper quadrant Qualified Code(s): R10.11 - Right upper quadrant pain PLAN: 1. Cholecystitis-patient will probably have a cholecystectomy perfo rmed tomorrow by general surgery #2 cholelithiasis #3 mild anemia-etiology unclear #4 elevated liver enzymes-probably secondary to cholecystitis No evidence for liver abscess at this time Visit Charges OBSV E&M: 55039 Subsequent observation care L3
--- NOTE | 2020-07-24 18:19 | NURSING ---
1400 - LATE ENRTY - PT BP 83/40. ASYMPTOMATIC. DR Sommers AWARE. NO NEW ORDERS @ THIS TIME
[2020-07-24 19:37] VITALS: BP 114/76; PULSE 60; RESP 16; TEMP 37; O2SAT 98
[2020-07-24 21:18] LABS: Internal QC Validated? YES +Cl - CLEAR BKGD; Pregnancy, Urine Negative Negative
[2020-07-25] VITALS (17 sets, daily range): BP systolic 99–148; BP diastolic 49–95; PULSE 54–88; RESP 16–22; TEMP 36.3–37.2; O2SAT 91–100; BMI 35.5
--- NOTE | 2020-07-25 | GALL_PTH ---
PATIENT: JOSE GREEN LOC: MS3 U#:[id number] AGE/SX: 25/F ROOM: MS316 RE07/23/[address]: Dr. Dank Oconnor DO : 1995 BED: 1 DIS: 07/27/2020 SPEC #: [id number] RECD: 07/25/20 14:39 STATUS: ABIMBOLA REXavier #: [id number] JONH: 07/25/20 00:[address]: Kodak Stoner DEPT: SURGICAL PATHOLOGY RECD BY: Luciano Rhodes ENTERED: 07/26/20 07:31 SP TYPE: GALLBLADDE OTHR DR: MD Dr. Dick Erwin MD Dr. Mark Tereletsky, DO Dr. Paul Nielsen, MD Tissues: A - Gallbladder, NOS B - TISSUE SURGICALLY REMOVED Procedures: Surgery Specimen Level III Comments: @ Ordering doctor for SUIII edited from to @ shawnee BARRIENTOS at 07/26/20 0931 @ Ordering doctor for SUIV edited from to @ by FLOYD at 07/26/20 0931 @ Submitting doctor edited from to @ shawnee BARRIENTOS at 07/26/20 0931 HEADER OPERATION: Laparoscopic cholecystectomy with IOC, drainage of abdominal abscess PRE-OP DIAGNOSIS: Cholelithiasis, abdominal abscess TISSUE SUBMITTED: A ? Gallbladder, B ? Inflammatory tissue MICROSCOPIC DIAGNOSIS A. Gallbladder, cholecystectomy: Chronic cholecystitis, cholelithiasis and cholesterolosis. B. Inflammatory tissue: A fragment of fibroconnective tissue with acute and chronic inflammation and fibrinous exudation. SJ:harry 07/27/2020 MICROSCOPIC DESCRIPTION Slides are reviewed. GROSS DESCRIPTION A - Received is one container labeled with the patient's name and designated gallbladder. The specimen consists of a gallbladder measuring 9 cm in length and up to 4 cm in diameter. The external surface is pink-gutiérrez, smooth and glistening for the most part. Focally it is granular, hemorrhagic and contains cautery artifact. The gallbladder contains green-yellow mucoid bile and multiple yellowish-green mulberry stones measuring in aggregate 2 x 1.5 x 0.3 cm and 0.2 to 0.3 cm in greatest dimension. The mucosa also shows several yellowish streaks consistent with cholesterolosis. The mucosa is bile-stained and without any mass lesions. The gallbladder wall measures up to 0.2 cm in thickness. [employer] sections from the gallbladder and the cystic duct are submitted in one cassette. B - Received in fixative is one container labeled with the patient's name and designated inflammatory tissue. The specimen consists of a piece of gutiérrez, indurated tissue measuring 1.5 x 0.5 x 0.2 cm. The entire specimen is submitted in one cassette. / SJ:rg 07/26/20 TC:2 CPT: 87938 x2
[2020-07-25] MEDS: 0.9% Saline Lock 10 ML Syringe IV ×2 (05:11→17:46)
[2020-07-25 06:26] LABS: Absolute Lymphocyte Count 1.36 X10^3/uL (0.83-4.51); Absolute Neutrophil Count 2.2 X10^3/uL (2.0-7.7); Basophil# 0.02 X10^3/uL; Basophil% 0.5 % (0-1); Eosinophil# 0.25 X10^3/uL; Eosinophils% 6.1 % (0-5); Hematocrit 32.6 % (37-47); Lymphocyte # 1.36 X10^3/ul (0.83-4.51); Lymphocyte % 33.3 % (19-41); Mean Corp Hgb Conc 30.7 g/dL (32-36); Mean Corpuscular Hgb 27.8 pg (27.0-32.0); Mean Corpuscular Volume 90.6 fL (81-99); Mean Platelet Vol. 11.9 fl (6.2-12.0); Monocyte# 0.28 X10^3/uL; Monocyte% 6.8 % (0-10); NRBC Flagged by Analyzer 0 % (0-5); Neutrophil # 2.17 X10^3/uL (2.7-7.7); Neutrophil % 53.1 % (47-70); Platelet Count 255 K/mm3 (150-450); RBC Distribution Width CV 13.2 % (11.6-14.6); RBC Distribution Width SD 43.5 fl (35.1-43.9); White Blood Count 4.1 K/mm3 (4.4-11.0)
[2020-07-25 06:50] LABS: ALB/GLOB Ratio 1.1 RATIO (0.9-2.4); AST(SGOT) 138 U/L (15-37); Alanine Aminotransfer ALT/SGPT 215 U/L (13-56); Albumin, Serum 3.2 g/dL (3.2-5.0); Alkaline Phosphatase 207 U/L (45-117); Anion Gap 5 (5-15); BUN 6 mg/dL (7-18); BUN/Creat Ratio 7.7 RATIO (10-20); Chloride 109 mmol/L (98-107); Creatinine, Serum 0.78 mg/dL (0.55-1.02); EST Glomerular Filtration Rate 97 mL/min (>60); Est Glom Filt Rate - Afr Amer 117 mL/min (>60); Estimated Creatinine Clearance 109.08 ml/min; Glucose 77 mg/dL (74-106); Potassium 4.1 mmol/L (3.5-5.1); Protein, Total 6.2 g/dL (6.4-8.2); Sodium Level 139 mmol/L (136-145)
[2020-07-25] MEDS: 0.9% Normal Saline 1,000 ML 100 ML IV ×2 (06:58→17:39)
--- NOTE | 2020-07-25 07:25 | PN.SURG_ITS ---
Subjective Subjective The patient reports no abdominal pain today and no nausea or vomiting overnight Objective Data Objective Data Vital Signs: Vital Signs Temp Pulse Resp BP Pulse Ox 98.2 F 64 16 109/57 L 98 07/25/20 05:10 07/25/20 05:10 07/25/20 05:10 07/25/20 05:10 07/25/20 05:10 Oxygen Delivery Method Room Air Weight: 227 lb 1.218 oz Body Mass Index (BMI) 35.5 Intake & Output: Intake and Output for Last 24 Hours 07/23/20 07/24/20 07/25/20 23:59 23:59 23:59 Intake Total 1230 / 1230 50.25 / 50.25 Output Total 400 / 400 700 / 700 Balance 830 / 830 -649.75 / -649.75 Lab / Micro Data Result Diagrams: 07/25/20 06:04 07/25/20 06:04 Labs: Laboratory Results - last 24 hr 07/24/20 07/24/20 07/24/20 06:10 09:05 19:40 WBC RBC Hgb Hct MCV MCH MCHC RDW Std Deviation RDW Coeff of Brigido Plt Count MPV Immature Gran % (Auto) Neut % (Auto) Lymph % (Auto) [place] % (Auto) Eos % (Auto) Baso % (Auto) Absolute Neuts (auto) Absolute Lymphs (auto) Nucleated RBC % PT 12.6 INR 1.0 Sodium 140 Potassium 3.8 Chloride 109 H Carbon Dioxide 24.0 Anion Gap 7 BUN 9 Creatinine 0.69 Estim Creat Clear Calc 123.31 Est GFR (MDRD) Af Amer 136 Est GFR (MDRD) Non-Af 112 BUN/Creatinine Ratio 13.1 Glucose 82 Calcium 8.6 Total Bilirubin 1.30 H AST 372 H ALT 219 H Alkaline Phosphatase 178 H Total Protein 6.2 L Albumin 2.9 L Globulin 3.3 Albumin/Globulin Ratio 0.9 Urine Test Negative 07/25/20 07/25/20 06:04 06:04 WBC 4.1 L RBC 3.60 L Hgb 10.0 L Hct 32.6 L MCV 90.6 MCH 27.8 MCHC 30.7 L RDW Std Deviation 43.5 RDW Coeff of Brigido 13.2 Plt Count 255 MPV 11.9 Immature Gran % (Auto) 0.200 Neut % (Auto) 53.1 Lymph % (Auto) 33.3 [place] % (Auto) 6.8 Eos % (Auto) 6.1 H Baso % (Auto) 0.5 Absolute Neuts (auto) 2.2 Absolute Lymphs (auto) 1.36 Nucleated RBC % 0 PT INR Sodium 139 Potassium 4.1 Chloride 109 H Carbon Dioxide 25.0 Anion Gap 5 BUN 6 L Creatinine 0.78 Estim Creat Clear Calc 109.08 Est GFR (MDRD) Af Amer 117 Est GFR (MDRD) Non-Af 97 BUN/Creatinine Ratio 7.7 L Glucose 77 Calcium 9.0 Total Bilirubin 0.70 AST 138 H ALT 215 H Alkaline Phosphatase 207 H Total Protein 6.2 L Albumin 3.2 Globulin 3.0 Albumin/Globulin Ratio 1.1 Urine Test Micro: Microbiology 07/24/20 12:57 Mucosa - Nasopharyngeal SARS-CoV-2 Antigen (Rapid) - Final Radiography Diagnostic Testing: Radiology Impression MRCP 07/24/20 08:36 IMPRESSION: Cholelithiasis with possible acute cholecystitis. No MRCP evidence of choledocholithiasis. Electronically Signed: Gopi Foster MD at 10:59 EDT Tel , Service support , Physical Exam Const oriented x3 and no apparent distress Resp normal respiratory effort Cardio regular rate and regular rhythm GI soft to palpation and non-tender Assessment & Plan Assessment/Plan (1) Cholelithiases: QUALIFIERS: Cholelithiasis location: gallbladder and bile duct Cholecystitis presence: without cholecystitis Biliary obstruction: with biliary obstruction Qualified Code(s): K80.71 - Calculus of gallbladder and bile duct without cholecystitis with obstruction PLAN: The patient has cholelithiasis with possible acute cholecystitis. MRCP did not show any choledocholithiasis. I recommend laparoscopic cholecystectomy with cholangiogram today. I discussed the procedure in detail with the patient. I discussed the risks, benefits, and alternatives of the procedure. I discussed the risks including but not limited to bleeding, infection, injury to surrounding organs such as the liver, bile duct, bowels. I did discuss the possibility of having to convert to an open procedure as well as the possibility that if any injuries occurred this may necessitate further surgery at a tertiary care center. Kodak Stoner MD Pager: [facility] [address] [place] [address], [address] [place] [address] Office:
--- NOTE | 2020-07-25 13:25 | RAD_ITS ---
STUDY: INTRAOPERATIVE CHOLANGIOGRAM REASON FOR EXAM: Female, 25 years old. PAIN RADIATION DOSAGE (If Supplied By Facility): CTDIvol = ( ) mGy, DLP = ( ) mGycm. Individualized dose optimization techniques were used for this CT.? FLUOROSCOPY TIME (if supplied): ( 29 ) seconds TECHNIQUE: Catheter placed by Dr. Stoner while performing cholecystectomy COMPARISON: None. FINDINGS: The cystic duct was cannulized and contrast injected. The gallbladder fills normally. As does the cystic duct, and biliary tree. There is no extravasation of contrast outside the lumen of the biliary tree, there is no dilatation of the biliary tree. There is an irregular string of pearls like appearance to the cystic duct suggesting inflammation. There is no retained stone or demonstrated stricture. There is free flow of contrast into the duodenum. RAD/Cholangiogram/ O R,Initial IMPRESSION: Intraoperative cholangiogram suggest inflammation within the cystic duct No extravasation of contrast outside the biliary tree No retained stone or stricture Electronically Signed: Chris Gupta MD at 14:42 EDT , Service support ,
[2020-07-25] MEDS: Bupivacaine 0.25%-Epi/Pf 1:200,000 10 ML (14:25)
--- NOTE | 2020-07-25 14:33 | PCM.OPRPT ---
Problems Associated Problem List Diagnoses (1) Colitis: (2) Cholelithiases: Report of Operation Date of Procedure: 07/25/20 Pre-Operative Diagnosis: Acute cholecystitis Post-Operative Diagnosis: 1. Cholelithiasis 2. Intra-abdominal abscess of the transverse colon Surgery/Procedure Performed:: Laparoscopic cholecystectomy with cholangiogram Description of Surgical Findings:: The patient had a very inflamed area which appeared to be originating from the proximal transverse colon. The gallbladder was minimally inflamed and from this area as was the liver. Specimen's removed: 1. Gallbladder and contents 2. Inflammatory tissue Drains: RANDI to bulb suction Description of Procedure: After obtaining informed consent patient was brought back to the operating room. General anesthesia was induced. The abdomen was prepped and draped in usual sterile fashion. A small midline incision was made superior to the umbilicus and deepened to the level of fascia. The fascia was elevated and incised. Next the peritoneum was elevated and incised in the same fashion. Finger sweep was performed and the Murillo trocar was placed into the abdomen. The balloon was inflated. The abdomen was inflated to 15 mmHg. Next a camera was introduced into the abdomen and the abdomen was inspected. Next under direct visualization three 5-mm ports were placed one subxiphoid and 2 subcostal. The patient had dense adhesions to the abdominal wall in the right upper quadrant. This area involved the hepatic flexure of the colon. The adhesions were bluntly taken down from the abdominal wall using the suction. The adhesions to the gallbladder were sharply taken down. There was a firm area of inflammation tightly adherent to the proximal transverse colon. Next the gallbladder was elevated and retracted toward the right shoulder. The peritoneum was stripped from the gallbladder. The infundibulum was located and retracted laterally. Next the triangle of Calot was dissected and the cystic duct and cystic artery were identified. Cholangiograms were performed. The Jha clamp was used to clamp across the infundibulum and the catheter needle was inserted into the gallbladder. Under fluoroscopy contrast was instilled into the gallbladder and the common duct, cystic duct as well as proximal hepatic ducts were identified. There was good filling of the duodenum. There were no filling defects noted in the common bile duct. The clamp was removed as well as the needle and the infundibulum was grasped once more. Three hemolock clips were placed across the cystic duct. The cystic duct was then divided leaving 2 clips on the stump. The cystic artery was clipped and divided in the same fashion. The hook cautery was then used to take the gallbladder off of the gallbladder bed. Hemostasis was obtained. Gallbladder fossa was irrigated and no active bleeding or bile leakage was noted. Next the camera was introduced in the subxiphoid port. An Endopouch bag was placed through the umbilical port and the gallbladder was placed into it. The gallbladder was then removed through the umbilical incision. The camera was then reinserted through the umbilical port. The gallbladder fossa was inspected once more and noted to be hemostatic with no leaking bile. The abdomen was suctioned dry. A 15 [place]ic drain was placed through the lateral port and over the abscess cavity and gallbladder fossa and sutured in place using 3-0 nylon suture. The 5 mm ports were removed under direct visualization. The umbilical port was then removed and the air was removed from the abdomen. Next using an 0 Vicryl suture the umbilical fascia was closed in a [id number] fashion. The umbilical port site was irrigated local anesthetic was administered to all the incisions. All the incisions were closed with interrupted subcuticular 4-0 Monocryl sutures followed by Steri-Strips and dressings. The patient was awoken and taken to PACU in stable condition. Admit VTE Documentation VTE Mechan Device Prophylaxis: SCD's
--- NOTE | 2020-07-25 14:38 | PCM.PN.BLA ---
Progress Note The patient had a very inflamed area in the right upper quadrant. It seemed to originate from the proximal transverse colon. There is no gross purulence or feculent material in this area. It was very inflamed to the abdominal wall. The inflamed areas were taken down and the gallbladder was removed as the patient did have cholelithiasis and elevated liver enzymes but the cholangiogram was normal and the gallbladder was not very inflamed. I believe the cause of the abscess and inflammation is the proximal transverse colon. A drain was left in place and the patient will be started on clear liquids and continued on antibiotics. The drain will be monitored as long as she does well I will plan for outpatient colonoscopy in the near future. Kodak Stoner MD Pager: [facility] [address] [place] [address], [address] [place] [address] Office:
[2020-07-25] MEDS: Lactated Ringers 1,000 ML 100 ML IV (14:45)
--- NOTE | 2020-07-25 16:36 | PN.HOSP_ITS ---
Subjective Subjective Patient was seen and examined today, she went to surgery this afternoon and general surgery call me to state that the patient had an inflamed area of her right colon, they theorized it could have been from a small perforation in the area from a diverticulum, a cholecystectomy was performed however and the patient will remain on antibiotics. Objective Data Objective Data Vital Signs: Vital Signs Temp Pulse Resp BP Pulse Ox 97.8 F 71 18 143/94 H 95 07/25/20 16:34 07/25/20 16:34 07/25/20 16:34 07/25/20 16:34 07/25/20 16:34 Oxygen Flow Rate (L/min) 2 Oxygen Delivery Method Room Air Weight: 103 kg Body Mass Index (BMI) 35.5 Intake & Output: Intake and Output for Last 24 Hours 07/23/20 07/24/20 07/25/20 23:59 23:59 23:59 Intake Total 1230 / 1230 775.00 / 775.00 Output Total 400 / 400 1450 / 1450 Balance 830 / 830 -675.00 / -675.00 Lab / Micro Data Result Diagrams: 07/25/20 06:04 07/25/20 06:04 Labs: Laboratory Results - last 24 hr 07/24/20 07/25/20 07/25/20 19:40 06:04 06:04 WBC 4.1 L RBC 3.60 L Hgb 10.0 L Hct 32.6 L MCV 90.6 MCH 27.8 MCHC 30.7 L RDW Std Deviation 43.5 RDW Coeff of Brigido 13.2 Plt Count 255 MPV 11.9 Immature Gran % (Auto) 0.200 Neut % (Auto) 53.1 Lymph % (Auto) 33.3 [place] % (Auto) 6.8 Eos % (Auto) 6.1 H Baso % (Auto) 0.5 Absolute Neuts (auto) 2.2 Absolute Lymphs (auto) 1.36 Nucleated RBC % 0 Sodium 139 Potassium 4.1 Chloride 109 H Carbon Dioxide 25.0 Anion Gap 5 BUN 6 L Creatinine 0.78 Estim Creat Clear Calc 109.08 Est GFR (MDRD) Af Amer 117 Est GFR (MDRD) Non-Af 97 BUN/Creatinine Ratio 7.7 L Glucose 77 Calcium 9.0 Total Bilirubin 0.70 AST 138 H ALT 215 H Alkaline Phosphatase 207 H Total Protein 6.2 L Albumin 3.2 Globulin 3.0 Albumin/Globulin Ratio 1.1 Urine Test Negative Micro: Microbiology 07/23/20 22:15 Urine, Clean Catch Urine Culture - Final Mixed Gram Pos & Gram Neg Org 07/24/20 12:57 Mucosa - Nasopharyngeal SARS-CoV-2 Antigen (Rapid) - Final Radiography Diagnostic Testing: Radiology Impression Cholangiogram 07/25/20 13:25 IMPRESSION: Intraoperative cholangiogram suggest inflammation within the cystic duct No extravasation of contrast outside the biliary tree No retained stone or stricture Electronically Signed: Chris Gupta MD at 14:42 EDT , Service support , Physical Exam Const alert, oriented x3, no apparent distress and healthy appearing General Appearance: cooperative HEENT normocephalic, head/scalp atraumatic and moist oral mucous membranes Eyes PERRL and EOMs intact bilaterally Neck no lymphadenopathy, supple, no JVD and thyroid normal General: trachea midline Lymph Lymphatic: no lymphadenopathy noted Resp normal respiratory effort, normal air movement, no retractions, no use of accessory muscles and clear to auscultation bilaterally Cardio regular rate, regular rhythm, S1 normal heart sound, S2 normal heart sound, no gallops and no clicks GI normal to inspection, nondistended, normoactive bowel sounds, soft to palpation and non-distended Auscultation: normoactive bowel sounds Palpation: tender RUQ Extremity normal to inspection, normal capillary refill and no clubbing, cyanosis or edema General Extremity: no tenderness to palpation of joints or extremities Skin no rashes or lesions noted, no wounds and skin turgor normal General Skin Exam: no breakdown and turgor normal Lesions: no lesions Rashes: no rashes Neuro oriented x3, CN's II-XII intact bilaterally, no focal motor deficits and no sensory deficits noted Sensorium / Orientation: awake and alert Psych thought process normal, cooperative and affect normal Appearance: appropriate Assessment & Plan Assessment/Plan (1) Abdominal pain: QUALIFIERS: Abdominal location: right upper quadrant Qualified Code(s): R10.11 - Right upper quadrant pain PLAN: 1. Inflammation of the right colon-exact etiology unclear, continue IV antibiotics #2 status post laparoscopic cholecystectomy postop day 0 Visit Charges Inpatient E&M: 36254 Subs Hosp L2
[2020-07-25] MEDS: Morphine 2 MG/ML Syringe IV (17:46)
[2020-07-25] MEDS: Ondansetron 4 MG/2 ML Vial IV (17:47)
[2020-07-25] MEDS: oxyCODONE 5 MG Tablet 10 MG PO (21:09)
[2020-07-26] VITALS (7 sets, daily range): BP systolic 110–124; BP diastolic 71–91; PULSE 65–90; RESP 14–16; TEMP 36.8–37.2; O2SAT 96–100
[2020-07-26] MEDS: 0.9% Normal Saline 1,000 ML 100 ML IV ×2 (03:12→14:50)
[2020-07-26] MEDS: oxyCODONE 5 MG Tablet 10 MG PO ×3 (04:53→18:31)
[2020-07-26 06:28] LABS: Absolute Neutrophil Count 4.5 X10^3/uL (2.0-7.7); Basophil# 0.02 X10^3/uL; Basophil% 0.3 % (0-1); Eosinophil# 0.04 X10^3/uL; Eosinophils% 0.7 % (0-5); Hematocrit 32.8 % (37-47); Hemoglobin 10.3 g/dL (12.0-15.0); Lymphocyte % 18.2 % (19-41); Mean Corp Hgb Conc 31.4 g/dL (32-36); Mean Corpuscular Hgb 27.8 pg (27.0-32.0); Mean Corpuscular Volume 88.4 fL (81-99); Mean Platelet Vol. 11.6 fl (6.2-12.0); Monocyte# 0.37 X10^3/uL; Monocyte% 6.1 % (0-10); NRBC Flagged by Analyzer 0 % (0-5); Neutrophil # 4.48 X10^3/uL (2.7-7.7); Neutrophil % 74.4 % (47-70); Platelet Count 263 K/mm3 (150-450); RBC Distribution Width SD 41.8 fl (35.1-43.9); Red Blood Count 3.71 M/mm3 (4.2-5.4)
[2020-07-26 07:05] LABS: Anion Gap 7 (5-15); BUN 5 mg/dL (7-18); Calcium,Total 8.5 mg/dL (8.5-10.1); Chloride 109 mmol/L (98-107); Creatinine, Serum 0.62 mg/dL (0.55-1.02); EST Glomerular Filtration Rate 126 mL/min (>60); Est Glom Filt Rate - Afr Amer 152 mL/min (>60); Estimated Creatinine Clearance 137.23 ml/min; Glucose 92 mg/dL (74-106); Potassium 3.5 mmol/L (3.5-5.1); Sodium Level 134 mmol/L (136-145)
--- NOTE | 2020-07-26 07:16 | PN.SURG_ITS ---
Subjective Subjective Patient reports she is passing flatus with no nausea or vomiting. Objective Data Objective Data Vital Signs: Vital Signs Temp Pulse Resp BP Pulse Ox 98.6 F 79 14 113/79 96 07/26/20 04:54 07/26/20 04:54 07/26/20 04:54 07/26/20 04:54 07/26/20 04:54 Oxygen Flow Rate (L/min) 2 Oxygen Delivery Method Room Air Weight: 227 lb 1.218 oz Body Mass Index (BMI) 35.5 Intake & Output: Intake and Output for Last 24 Hours 07/24/20 07/25/20 07/26/20 23:59 23:59 23:59 Intake Total 1230 / 1230 1063.34 / 1063.34 983.33 / 983.33 Output Total 400 / 400 2485 / 2485 1000 / 1000 Balance 830 / 830 -1421.66 / -1421.66 -16.67 / -16.67 Lab / Micro Data Result Diagrams: 07/26/20 06:04 07/26/20 06:04 Labs: Laboratory Results - last 24 hr 07/26/20 07/26/20 06:04 06:04 WBC 6.0 RBC 3.71 L Hgb 10.3 L Hct 32.8 L MCV 88.4 MCH 27.8 MCHC 31.4 L RDW Std Deviation 41.8 RDW Coeff of Brigido 13.0 Plt Count 263 MPV 11.6 Immature Gran % (Auto) 0.300 Neut % (Auto) 74.4 H Lymph % (Auto) 18.2 L Murray % (Auto) 6.1 Eos % (Auto) 0.7 Baso % (Auto) 0.3 Absolute Neuts (auto) 4.5 Absolute Lymphs (auto) 1.10 Nucleated RBC % 0 Sodium 134 L Potassium 3.5 Chloride 109 H Carbon Dioxide 18.0 L Anion Gap 7 BUN 5 L Creatinine 0.62 Estim Creat Clear Calc 137.23 Est GFR (MDRD) Af Amer 152 Est GFR (MDRD) Non-Af 126 BUN/Creatinine Ratio 8.0 L Glucose 92 Calcium 8.5 Micro: Microbiology 07/23/20 22:15 Urine, Clean Catch Urine Culture - Final Mixed Gram Pos & Gram Neg Org 07/24/20 12:57 Mucosa - Nasopharyngeal SARS-CoV-2 Antigen (Rapid) - Final Radiography Diagnostic Testing: Radiology Impression Cholangiogram 07/25/20 13:25 IMPRESSION: Intraoperative cholangiogram suggest inflammation within the cystic duct No extravasation of contrast outside the biliary tree No retained stone or stricture Electronically Signed: Chris Gupta MD at 14:42 EDT , Service support , Physical Exam Const oriented x3 and no apparent distress Resp normal respiratory effort Cardio regular rate and regular rhythm GI soft to palpation Palpation: tender Assessment & Plan Assessment/Plan (1) Cholelithiases: QUALIFIERS: Cholelithiasis location: gallbladder and bile duct Cholecystitis presence: without cholecystitis Biliary obstruction: with biliary obstruction Qualified Code(s): K80.71 - Calculus of gallbladder and bile duct without cholecystitis with obstruction PLAN: The patient was found to have cholelithiasis but she also had an intra-abdominal abscess of unknown origin. Patient had laparoscopic cholecystectomy yesterday and the fluid collection adjacent to the gallbladder was drained. It did not appear to be originating from the gallbladder. The patient's drain is serosanguineous and she is passing flatus. She has an appropriate amount of tenderness which is controlled on oral pain medication. I will advance the patient to a transitional diet. If she tolerates transitional diet and is okay for discharge later today I will have the drain removed before discharge. I would like her to follow-up with me in 1 week and to be discharged on Augmentin for 7 days. I will perform an outpatient colonoscopy. Kodak Stoner MD Pager: [facility] [address] [place] [address], [address] [place] [address] Office:
--- NOTE | 2020-07-26 16:24 | PCM.PN.HOSP ---
Subjective Subjective Patient was seen and examined today, she is resting quietly, I talked with general surgery today and they recommended removing the drain tomorrow morning, patient will be reevaluated for possible discharge in the morning Objective Data Objective Data Vital Signs: Vital Signs Temp Pulse Resp BP Pulse Ox 98.4 F 66 16 124/90 H 100 07/26/20 12:01 07/26/20 12:01 07/26/20 12:01 07/26/20 12:01 07/26/20 12:01 Oxygen Flow Rate (L/min) 2 Oxygen Delivery Method Room Air Weight: 103 kg Body Mass Index (BMI) 35.5 Intake & Output: Intake and Output for Last 24 Hours 07/24/20 07/25/20 07/26/20 23:59 23:59 23:59 Intake Total 1230 / 1230 1063.34 / 1063.34 2283.33 / 2283.33 Output Total 400 / 400 2485 / 2485 2009 Balance 830 / 830 -1421.66 / -1421.66 273.33 / 273.33 Lab / Micro Data Result Diagrams: 07/26/20 06:04 07/26/20 06:04 Labs: Laboratory Results - last 24 hr 07/26/20 07/26/20 06:04 06:04 WBC 6.0 RBC 3.71 L Hgb 10.3 L Hct 32.8 L MCV 88.4 MCH 27.8 MCHC 31.4 L RDW Std Deviation 41.8 RDW Coeff of Brigido 13.0 Plt Count 263 MPV 11.6 Immature Gran % (Auto) 0.300 Neut % (Auto) 74.4 H Lymph % (Auto) 18.2 L Hitchcock % (Auto) 6.1 Eos % (Auto) 0.7 Baso % (Auto) 0.3 Absolute Neuts (auto) 4.5 Absolute Lymphs (auto) 1.10 Nucleated RBC % 0 Sodium 134 L Potassium 3.5 Chloride 109 H Carbon Dioxide 18.0 L Anion Gap 7 BUN 5 L Creatinine 0.62 Estim Creat Clear Calc 137.23 Est GFR (MDRD) Af Amer 152 Est GFR (MDRD) Non-Af 126 BUN/Creatinine Ratio 8.0 L Glucose 92 Calcium 8.5 Micro: Microbiology 07/23/20 23:57 Blood Culture (Wb) - Left Hand Blood Culture - Preliminary No growth in 48 hours. 07/23/20 23:57 Blood Culture (Wb) - Right Forearm Blood Culture - Preliminary No growth in 48 hours. 07/23/20 22:15 Urine, Clean Catch Urine Culture - Final Mixed Gram Pos & Gram Neg Org 07/24/20 12:57 Mucosa - Nasopharyngeal SARS-CoV-2 Antigen (Rapid) - Final Physical Exam Const alert, oriented x3 and no apparent distress HEENT head/scalp atraumatic, moist oral mucous membranes and oropharynx normal Head and Scalp: normocephalic Eyes PERRL, EOMs intact bilaterally and conjunctivae normal Neck no lymphadenopathy, supple and no JVD Resp normal respiratory effort, no retractions, no use of accessory muscles and clear to auscultation bilaterally Cardio regular rate, regular rhythm, S1 normal heart sound, S2 normal heart sound, no gallops and no clicks Extremity normal to inspection and full ROM Skin no rashes or lesions noted, no wounds, skin turgor normal, no jaundice, no petechiae and no mottling Neuro oriented x3, CN's II-XII intact bilaterally, no focal motor deficits and no sensory deficits noted Sensorium / Orientation: awake and alert Psych affect normal Assessment & Plan Assessment/Plan (1) Abdominal pain: QUALIFIERS: Abdominal location: right upper quadrant Qualified Code(s): R10.11 - Right upper quadrant pain PLAN: 1. Abdominal abscess-etiology unclear, continue IV antibiotics, reevaluate patient tomorrow #2 status post laparoscopic cholecystectomy postop day 1 Visit Charges Inpatient E&M: 25798 [facility] Hosp L2
[2020-07-27] MEDS: 0.9% Normal Saline 1,000 ML 100 ML IV (00:48)
[2020-07-27] MEDS: oxyCODONE 5 MG Tablet 10 MG PO ×2 (00:52→08:29)
[2020-07-27 04:37] VITALS: BP 122/76; PULSE 62; RESP 16; TEMP 36.6; O2SAT 97
--- NOTE | 2020-07-27 07:58 | PCM.DC ---
Discharge Instructions Diet Discharge Diet: Light diet - advance as tolerated Activity Discharge Activity: May Not Drive (for 2-3 days or while taking narcotic pain medications.), May Shower and - (Do not drive, work heavy equipment or sign legal documents for 24 hours.) Lifting Restrictions: 20 lbs for 2 weeks Additional Activity Instructions:: Pain medication may cause nausea. You should typically eat light foods as you take your pain medications. Pain medication may also cause constipation. If this is a problem for you, please discuss with your doctor. Dressing / Incision Call your doctor if your incision/area has: Continuous Slow Oozing, Sudden Increased Bleeding, Increased Pain/ Swelling, Increased Redness and Foul Smelling Discharge Call your doctor if you observe: Fever of 101 or Higher Suture Line Care: Avoid Pulling/Pushing and Avoid Pinching/Bending Additional Dressing/Incision Instructions:: Leave operative bandaids on for 2 days. When you remove dressing, leave Steri-Strips on until your follow-up appointment, or until the Steri-Strips fall off on their own. Follow Up Care Please Follow Up With: Kodak Stoner MD When: Please call to schedule 1 week follow up appointment. [phone] Test Results: Test results from this visit will be discussed in further detail at your follow-up appointment, if applicable. Discharge Plan Admission Admit Date/Time: 07/23/20 23:52 Attending Provider: Dank Oconnor Primary Care Provider: Sohail Calderon Consulting Providers: Kodak Stoner Discharge Orders/Prescriptions Prescriptions: No Action NK RF: 0 Referrals / Follow Up: Sohail Calderon MD [Primary Care Provider] -
--- NOTE | 2020-07-27 07:59 | PN.SURG_ITS ---
Subjective Subjective Patient reports he is tolerating a diet. She has not passed any flatus yet but she feels like she is having gas pains and needs to have a bowel movement. She is not having any nausea or vomiting with regular diet. Her abdominal pain is well controlled on p.o. meds. Objective Data Objective Data Vital Signs: Vital Signs Temp Pulse Resp BP Pulse Ox 97.8 F 62 16 122/76 H 97 07/27/20 04:37 07/27/20 04:37 07/27/20 04:37 07/27/20 04:37 07/27/20 04:37 Oxygen Flow Rate (L/min) 2 Oxygen Delivery Method Room Air Weight: 227 lb 1.218 oz Body Mass Index (BMI) 35.5 Intake & Output: Intake and Output for Last 24 Hours 07/25/20 07/26/20 07/27/20 23:59 23:59 23:59 Intake Total 1063.34 / 1063.34 2533.33 / 2533.33 1096.67 / 1096.67 Output Total 2485 / 2485 4010 / 4100 160 / 160 Balance -1421.66 / -1421.66 -1476.67 / -1566.67 936.67 / 936.67 Lab / Micro Data Result Diagrams: 07/26/20 06:04 07/26/20 06:04 Micro: Microbiology 07/23/20 23:57 Blood Culture (Wb) - Left Hand Blood Culture - Preliminary No growth in 48 hours. 07/23/20 23:57 Blood Culture (Wb) - Right Forearm Blood Culture - Preliminary No growth in 48 hours. 07/23/20 22:15 Urine, Clean Catch Urine Culture - Final Mixed Gram Pos & Gram Neg Org 07/24/20 12:57 Mucosa - Nasopharyngeal SARS-CoV-2 Antigen (Rapid) - Final Radiography Diagnostic Testing: Radiology Impression MRCP 07/24/20 08:36 IMPRESSION: Cholelithiasis with possible acute cholecystitis. No MRCP evidence of choledocholithiasis. Electronically Signed: Gopi Foster MD at 10:59 EDT Tel , Service support , ADDENDUM: 07/26/20 1641 Physical Exam Const oriented x3 and no apparent distress Resp normal respiratory effort Cardio regular rate and regular rhythm GI soft to palpation GI Narrative: RANDI is serosanguineous Assessment & Plan Assessment/Plan (1) Cholelithiases: QUALIFIERS: Cholelithiasis location: gallbladder and bile duct Cholecystitis presence: without cholecystitis Biliary obstruction: with biliary obstruction Qualified Code(s): K80.71 - Calculus of gallbladder and bile duct without cholecystitis with obstruction PLAN: The patient had laparoscopic cholecystectomy due to her cholelithiasis and elevated liver enzymes. She was found to have an intra- abdominal phlegmon near the right upper quadrant of unknown origin. This was mobilized and irrigated and a drain was left in place. The drain was serosanguineous this morning and removed. She had been started on a regular diet and tolerated this and feels like she is doing to pass gas and have bowel movement today with no nausea or vomiting. Patient is okay to go home from my standpoint. I would like her to go home on 7 days of oral antibiotics. Her drains been removed. I would like to follow-up in 1 week to discuss possible repeat CT scan or colonoscopy or both. I instructed the patient that if she felt worse at any time including nausea or vomiting or fevers or chills she should call my office or return to the emergency room. Kodak Stoner MD Pager: [facility] [address] [place] [address], [address] [place] [address] Office:
--- NOTE | 2020-07-27 08:53 | PCM.DC ---
Discharge Instructions Diet Discharge Diet: Light diet - advance as tolerated Activity Discharge Activity: May Not Drive (for 2-3 days or while taking narcotic pain medications.), May Shower and - (Do not drive, work heavy equipment or sign legal documents for 24 hours.) Additional Activity Instructions:: Pain medication may cause nausea. You should typically eat light foods as you take your pain medications. Pain medication may also cause constipation. If this is a problem for you, please discuss with your doctor. Dressing / Incision Call your doctor if your incision/area has: Continuous Slow Oozing, Sudden Increased Bleeding, Increased Pain/ Swelling, Increased Redness and Foul Smelling Discharge Call your doctor if you observe: Fever of 101 or Higher Suture Line Care: Avoid Pulling/Pushing and Avoid Pinching/Bending Additional Dressing/Incision Instructions:: Leave operative bandaids on for 2 days. When you remove dressing, leave Steri-Strips on until your follow-up appointment, or until the Steri-Strips fall off on their own. Follow Up Care Please Follow Up With: Kodak Stoner MD Test Results: Test results from this visit will be discussed in further detail at your follow-up appointment, if applicable. Discharge Plan Admission Admit Date/Time: 07/23/20 23:52 Primary Reason for Your Visit: abdominal abcess Attending Provider: Dank Oconnor Primary Care Provider: Sohail Calderon Consulting Providers: Kodak Stoner Discharge Orders/Prescriptions Prescriptions: New amoxicillin-pot clavulanate [Augmentin] 875-125 mg tablet 1 tab PO BID Qty: 14 RF: 0 Referrals / Follow Up: Kodak Stoner MD [STAFF PHYSICIAN] - In 1 Week Sohail Calderon MD [Primary Care Provider] - Within 2 Weeks Disposition Disposition (needs filled in before D/C Order can be placed): Home, self care
[2020-07-27 09:00] VITALS: BP 119/74; PULSE 67; RESP 14; TEMP 36.9; O2SAT 97
--- NOTE | 2020-07-27 10:33 | PHA.DC.MC ---
Pharmacy Service has performed discharge medication reconciliation and counseling for this patient. 1. AUGMENTIN 1T PO BIDCM X 7 DAYS The patient's discharge medication list was reviewed for discrepancies and discrepancies were resolved. Home Medications amoxicillin-pot clavulanate [Augmentin] 1 tab PO BID #14 tab 07/27/20 The patient was counseled on the following discharge medications and changes in medications for homegoing were reviewed. The Reason for Use, instructions for use, and potential side effects were reviewed for all new medications. The patient's questions regarding all of their medications were answered. The patient was able to verbally demonstrate an understanding of their discharge medications.
--- NOTE | 2020-07-28 17:25 | PCM.DC.SUM ---
Providers Date of Admission: 07/23/20 Date of Discharge: 07/27/20 Primary Care Physician: Dr. Sohail Calderon MD Consultations 07/24/20 08:37 Consult: General Surgery Routine Consulting Provider: Kodak Stoner Reason for Consult: elevated liver enzymes EMERGENT Consult: No MD Notified: Yes Date Notified:: 07/24/20 Time Notified: 08:38 Method of Notification: Verbal Reason For Visit: RUQ PAIN Diagnosis Discharge Diagnosis (1) Cholelithiases: Status: Acute Code(s): K80.20 - Calculus of gallbladder without cholecystitis without obstruction Qualifiers: Cholelithiasis location: gallbladder and bile duct Cholecystitis presence: without cholecystitis Biliary obstruction: with biliary obstruction Qualified Code(s): K80.71 - Calculus of gallbladder and bile duct without cholecystitis with obstruction Plan: 1. Abdominal abscess #2 cholelithiasis Medications at Discharge Home Medications amoxicillin-pot clavulanate [Augmentin] 1 tab PO BID #14 tab 07/27/20 hydrocodone-acetaminophen 1 - 2 tab PO Q6H PRN 7 Days #14 tab 07/27/20 Hospital Course Operations cholecystecomy Procedures None Summary of Care Provided Minutes Spent on Discharge: 30 Hospital Course: This 25-year-old white female was seen in the emergency room at [facility] with a chief complaint of abdominal pain chiefly in the right upper quadrant x3 weeks. She was 1 month . CBC revealed a normal white blood cell count, hemoglobin was 10.6, chemistry profile revealed a potassium of 3.4, patient's liver enzymes were elevated with an elevated AST, ALT, and alkaline phosphatase. Urinalysis showed the presence of white blood cells but it was not a clean-catch due to the numbers of squamous epithelial cells in the urinalysis. CT of the abdomen and pelvis showed a small thick-walled fluid density structure along the inferior edge of the liver suspicious for an abscess. Patient was placed in observation status on MedSurg 3, she was placed on IV antibiotics and she was seen by general surgery. An MRCP was performed which showed cholelithiasis with possible acute cholecystitis, no evidence of choledocholithiasis was noted. Patient was taken for a laparoscopic cholecystectomy, gallbladder was removed and general surgery felt that the patient had an intra-abdominal abscess. She remained on IV antibiotics and had no postop complications. On 07/27/2020, patient was seen and examined: On examination she appeared in good health and spirits, she does not appear to be in any distress. Vital signs as documented. Skin warm and dry and without overt rashes. Neck without JVD, thyroid appears normal, trachea is midline, neck is supple. Lungs clear, normal air movement was noted. Heart exam notable for regular rhythm, normal sounds and absence of murmurs, rubs or gallops. Abdomen unremarkable and without evidence of organomegaly, masses, or abdominal aortic enlargement, bowel sounds are present in all 4 quadrants, no abdominal tenderness was noted. Extremities nonedematous, no cyanosis was noted, no clubbing was noted. Neuro: Cranial nerves II through XII are grossly intact, no focal motor deficits were noted, sensation to light touch and pinprick is intact, motor exam 5/5 throughout. Psych: Patient is alert and oriented x3, she does not appear anxious or depressed, she does not appear agitated. Patient was discharged home in stable condition on 07/27/2020. ABG / Lab / Microbiology Data Result Diagrams: 07/26/20 06:04 07/26/20 06:04 Microbiology: Microbiology 07/23/20 23:57 Blood Culture (Wb) - Left Hand Blood Culture - Preliminary No growth in 48 hours. 07/23/20 23:57 Blood Culture (Wb) - Right Forearm Blood Culture - Preliminary No growth in 48 hours. 07/23/20 22:15 Urine, Clean Catch Urine Culture - Final Mixed Gram Pos & Gram Neg Org 07/24/20 12:57 Mucosa - Nasopharyngeal SARS-CoV-2 Antigen (Rapid) - Final D/C Instructions Discharge Diet: Light diet - advance as tolerated Discharge Activity: May Not Drive (for 2-3 days or while taking narcotic pain medications.), May Shower and - (Do not drive, work heavy equipment or sign legal documents for 24 hours.) Additional Activity Instructions: Pain medication may cause nausea. You should typically eat light foods as you take your pain medications. Pain medication may also cause constipation. If this is a problem for you, please discuss with your doctor. Call your doctor if your incision/area has: Continuous Slow Oozing, Sudden Increased Bleeding, Increased Pain/ Swelling, Increased Redness and Foul Smelling Discharge Call your doctor if you observe: Fever of 101 or Higher Suture Line Care: Avoid Pulling/Pushing and Avoid Pinching/Bending Additional Dressing/Incision Instructions: Leave operative bandaids on for 2 days. When you remove dressing, leave Steri-Strips on until your follow-up appointment, or until the Steri-Strips fall off on their own. Please Follow Up With: Kodak Stoner MD When: Please call to schedule 1 week follow up appointment. [phone] Meaningful Use Info Meaningful Use Diagnoses (Choose all that apply): None applicable Discharge Plan Admission Admit Date/Time: 07/23/20 23:52 Primary Reason for Your Visit: abdominal abcess Attending Provider: Dank Oconnor Primary Care Provider: Sohail Calderon Consulting Providers: Kodak Stoner Discharge Orders/Prescriptions Prescriptions: New amoxicillin-pot clavulanate [Augmentin] 875-125 mg tablet 1 tab PO BID Qty: 14 RF: 0 hydrocodone-acetaminophen 5-325 mg tablet 1 - 2 tab PO Q6H PRN (Reason: pain) 7 Days Qty: 14 RF: 0 Referrals / Follow Up: Kodak Stoner MD [STAFF PHYSICIAN] - In 1 Week Sohail Calderon MD [Primary Care Provider] - Within 2 Weeks Disposition Disposition (needs filled in before D/C Order can be placed): Home, self care Visit Charges OBSV E&M: [id number] Observation care discharge
== END 2020-07-27 11:00 | disposition home or self-care (01) ==
LOC: ED 23:51 → MS3 07-24 00:06
PROVIDERS: Anesthesiology; Nurse Practitioner Family; Surgery; Admitting Provider Family Medicine; Emergency Provider Emergency Medicine; PCP Family Medicine; Visit Provider Internal Medicine
PROC: (CPT 47610; principal; 2020-07-25 13:05)
DX: K80.71 Calculus of gallbladder and bile duct without cholecystitis with obstruction (principal); K21.9 Gastro-esophageal reflux disease without esophagitis; K80.10 Calculus of gallbladder with chronic cholecystitis without obstruction; K65.1 Peritoneal abscess; F17.210 Nicotine dependence, cigarettes, uncomplicated
CPT/HCPCS: 47563; 36415; 71275; 74177; 74181; 74300; 76000; 80048; 80053; 81001; 81025; 85025; 85610; 87040; 87086; 87088; 87426; 88304; 88305; 96361; 96365; 96366; 96375; 96376; 99218; 99284; J7030; J7050; J7120; Q9967; A4216; G0378; J2405

== ENCOUNTER → 2020-08-22 12:54 | Outpatient (CLI) | payer OTHER, SELFPAY ==
[2020-07-25 11:06] VITALS: BMI 35.5
[2020-08-02 09:24] VITALS: BMI 35.5
--- NOTE | 2020-08-22 13:00 | CT_ITS ---
STUDY: CT ABDOMEN AND PELVIS WITH CONTRAST REASON FOR EXAM: Female, 25 years old. RUQ abscess -- PO and IV RADIATION DOSAGE (If Supplied By Facility): CTDIvol = ( 14.95 ) mGy, DLP = ( 1211.59 ) mGycm TECHNIQUE: Transaxial images were obtained from the dome of the diaphragm to the symphysis pubis with oral contrast. Oral and amp; IV Readi-CAT and amp; 100mL Isovue-300 was administered. Sagittal and coronal images were reconstructed. Individualized dose optimization techniques were used for this CT. COMPARISON: Comparison is made with prior study dated 07/23/2020. FINDINGS: The visualized lung bases are unremarkable. The visualized portions of the heart are within normal limits. Normal liver. The previously seen lobulated thick walled small fluid collection in the right upper quadrant is not seen at this time. The patient is status post cholecystectomy. Normal spleen. Normal pancreas. Normal bilateral adrenal glands. Normal right kidney. Normal left kidney. Normal visualized stomach. Normal small intestine. Normal colon. The appendix is visualized and appears normal. Normal abdominal aorta. Normal inferior vena cava. Normal retroperitoneum. Normal urinary bladder. There is a 2.6 cm cyst in the left ovary. Follicles are seen in the right ovary. Normal abdominal wall. Normal osseous structures. CT/Abdomen/Pelvis WITH Contrast IMPRESSION: Status post cholecystectomy. No acute abnormality is seen. Electronically Signed: Jimmie Shane MD at 13:43 EDT , Service support ,
== END ==
PROVIDERS: PCP Family Medicine; Referring Provider Surgery; Visit Provider Surgery
DX: K75.0 Abscess of liver (principal)
CPT/HCPCS: 74177; Q9967

== ENCOUNTER 2020-10-26 05:36 | Day surgery (SDC) | payer OTHER, SELFPAY ==
[2020-09-12 08:04] VITALS: BMI 36.1
[2020-10-26 06:18] VITALS: BP 112/67; PULSE 112; RESP 18; TEMP 36.7; O2SAT 97; BMI 35.6
--- NOTE | 2020-10-26 06:21 | H&P.OPEN ---
HPI - General HPI Narrative JOSE GREEN, is a 25 F who presents for colonoscopy. The patient recently had inflammation of the colon with fluid collection and CT scan showed that this fully resolved. She is not having any abdominal pain at this time. [facility] Medical History Cholelithiases GERD (gastroesophageal reflux disease) History of tetanus, diphtheria, and acellular pertussis booster vaccination (Tdap) Influenza vaccination declined IUD (intrauterine device) in place Rash Smoker Wears glasses Home Medications clotrimazole-betamethasone 1 %-0.05 % topical cream 1 applic TOPICAL BID 14 Days #45 g 10/09/20 [Rx Last Taken Unknown] Allergy/AdvReac Type Severity Reaction Status Date / Time No Known Allergies Allergy Verified 10/26/20 06:17 Family History Grandmother Diabetes Heart disease Grandfather Skin cancer Surgical History S/P laparoscopic cholecystectomy Social History sexually active: Yes Smoking Status: Current some day smoker tobacco type: cigarettes details: occasionally substance use type: does not use caffeine: Yes what type of physical activity do you participate in: none seatbelt use: always do you feel safe at home: Yes 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 [employer] Past Medical/Surgical History Planned Operation Planned Operative Procedure/s: colonoscopy Previous Hospitalizations/Surgeries HX Hospitalizations: No Any Problems With Anesthesia: No You/Your Family Experience Fever (Hyperthermia) With Anes: No Cholinesterase deficiency: No Cardiovascular Hx Hypertension: No Respiratory Hx Sleep Apnea: No Hx Respiratory Tract Infection/Cold (presently): No Do You Snore Loudly (louder than talking or can be heard): No Do You Often Feel Tired/ Fatigued/ Sleepy Dring Daytime?: No Has Anyone Observed You Stop Breathing During Sleep?: No Result (for STOP score): Negative Hx Smoking: No Smoking Status: Current some day smoker Neurological Does patient have nerve stimulator: No Reproduction : No Miscellaneous Recent Exposure to Contagious Disease: No Allergies No Known Allergies Allergy (Verified 10/26/20 06:17) Discharge Is Pt Admitted From a Jail, or a Senior Living: No Who Could Help: mother After D/C, Where Do you Plan to Go: Return Home Vital Signs Vital Signs Vital Signs: 10/26/20 06:18 Temperature 98.0 F Temperature Source Temporal Pulse Rate 112 H Respiratory Rate 18 Blood Pressure 112/67 Blood Pressure Mean 82 Blood Pressure Source Monitor Blood Pressure Position Semi-Fowlers Blood Pressure Location Left Arm Pulse Ox 97 Oxygen Delivery Method Room Air Weight Weight: 227 lb 12.8 oz Body Mass Index (BMI) 35.6 Physical Exam Const alert and oriented x3 Resp normal respiratory effort and normal air movement Cardio regular rate and regular rhythm GI soft to palpation, non-tender and non-distended Assessment & Plan Assessment/Plan (1) Colitis: PLAN: The patient had an inflammatory area which was adjacent to her colon. She had a CT scan after this resolved to show that the abscess fully resolved and there was no thickening of the colon. I recommended colonoscopy to ensure the colon appeared normal. I explained endoscopy in detail to the patient. I explained the risks including but not limited to stroke or heart attack with anesthesia, perforation of the GI tract, bleeding, infection. I explained that any of these could necessitate further emergency surgery. The patient understands and all questions were answered sufficiently. The patient wishes to proceed with procedure. Kodak Stoner MD Pager: [facility] [address] [place] [address], [address] [place] [address] Office: Surgery Risks - Colonoscopy Risks Include but are not Limited To: Risks include but are not limited to: Bleeding, perforation requiring further surgery, inability to complete colonoscopy requiring barium enema.
[2020-10-26] MEDS: Lactated Ringers 1,000 ML 100 ML IV (06:35)
--- NOTE | 2020-10-26 07:26 | OP.COLON_ITS ---
Patient Name: Chanda Floyd Procedure Date: 10/26/2020 7:06 AM Date of : 1995 Age: 25 Procedure: Colonoscopy Indications: Colitis Providers: Kodak Stoner MD Medicines: Monitored Anesthesia Care Patient Profile: This is a 25 year old female. Refer to note in patient chart for documentation of history and physical. Last Colonoscopy: none. The patient's first colonoscopy is today. Complications: No immediate complications. Procedure: Pre-Anesthesia Assessment: - Prior to the procedure, a History and Physical was performed, and patient medications and allergies were reviewed. The patient's tolerance of previous anesthesia was also reviewed. The risks and benefits of the procedure and the sedation options and risks were discussed with the patient. All questions were answered, and informed consent was obtained. Prior Anticoagulants: The patient has taken no previous anticoagulant or antiplatelet agents. After reviewing the risks and benefits, the patient was deemed in satisfactory condition to undergo the procedure. After I obtained informed consent, the scope was passed under direct vision. Throughout the procedure, the patient's blood pressure, pulse, and oxygen saturations were monitored continuously. The Colonoscope was introduced through the anus and advanced to the cecum, identified by appendiceal orifice and ileocecal valve. The colonoscopy was performed without difficulty. The patient tolerated the procedure well. The quality of the bowel preparation was good. Scope In: 7:10:41 AM Scope Withdrawal Time 0 hours 6 minutes 6 seconds Scope Out: 7:23:52 AM Total Procedure Duration Time 0 hours 13 minutes 11 seconds Findings: The entire examined colon appeared normal on direct and retroflexion views. Impression: - The entire examined colon is normal on direct and retroflexion views. - No specimens collected. Recommendation: - Discharge patient to home. - Resume previous diet. - Continue present medications. - Repeat colonoscopy at age 52 for screening purposes. Procedure Code(s): --- Professional --- 58364, Colonoscopy, flexible; diagnostic, including collection of specimen(s) by brushing or washing, when performed (separate procedure) Diagnosis Code(s): --- Professional --- K52.9, Noninfective gastroenteritis and colitis, unspecified CPT copyright 2017 [employer]. All rights reserved. The codes documented in this report are preliminary and upon food and beverage director review may be revised to meet current compliance requirements. Kodak Stoner MD 10/26/2020 7:26:22 AM This report has been signed electronically. Number of Addenda: 0 Note Initiated On: 10/26/2020 7:06 AM
--- NOTE | 2020-10-26 07:26 | OP.CCLET_ITS ---
10/26/2020 Sohail Calderon [address] [place] [address] Re : Colonoscopy procedure for Chanda Floyd Dear Dr. Calderon This procedure was performed on Monday, October 26, 2020. My impressions and recommendations are as follows: Impressions : - The entire examined colon is normal on direct and retroflexion views. - No specimens collected. Recommendations : - Discharge patient to home. - Resume previous diet. - Continue present medications. - Repeat colonoscopy at age 52 for screening purposes. My findings are described in the full procedure note, which is enclosed. If I can be of further assistance, please feel free to contact me at Doctor phone number(s): , Work: . Sincerely, Kodak Stoner MD 10/26/2020 7:26:22 AM This report has been signed electronically.
[2020-10-26 07:30] VITALS: BP 103/89; BP 112/67; PULSE 93; RESP 18; TEMP 36.1; O2SAT 93
[2020-10-26 07:35] VITALS: BP 110/59; BP 112/67; PULSE 97; RESP 16; O2SAT 93
[2020-10-26 07:40] VITALS: BP 112/67; BP 115/67; PULSE 91; RESP 18; O2SAT 92
[2020-10-26 07:45] VITALS: BP 112/67; BP 123/74; PULSE 93; RESP 18; TEMP 37; O2SAT 93
[2020-10-26 08:03] VITALS: BP 112/67
== END 2020-10-26 08:10 | disposition home or self-care (01) ==
LOC: EN 05:42 → AC 05:43
PROVIDERS: PCP Family Medicine; Referring Provider Family Medicine; Visit Provider Surgery
PROC: 0DJD8ZZ Inspection of Lower Intestinal Tract, Via Natural or Artificial Opening Endoscopic (ICD-10-PCS; CPT 45378; principal; 2020-10-26 06:55)
DX: K52.9 Noninfective gastroenteritis and colitis, unspecified (principal); F17.210 Nicotine dependence, cigarettes, uncomplicated
CPT/HCPCS: 45378; J7120; J2405

== ENCOUNTER → 2021-10-21 | Outpatient (CLI) | payer OTHER, SELFPAY ==
[2021-10-21 09:39] LABS: Vitamin D,25 Hydroxy 25.1 ng/mL
[2021-10-21 09:47] LABS: Cholesterol 139 mg/dL (200); Glucose 95 mg/dL (74-106); High Density Lipoprotein 36 mg/dL; Thyroid Stim Hormone (TSH) 2.41 uIU/mL (0.358-3.74); Triglycerides 113 mg/dL; Very Low Density Lipoprotein 23 mg/dL (5-40)
[2021-10-24 06:07] LABS: Chlamydia By Nucleic Acid AMP Negative (Negative)
[2021-10-24 07:35] LABS: Gonococcus By Nucleic Acid AMP Negative (Negative)
== END | disposition home or self-care (01) ==
PROVIDERS: PCP Family Medicine; Referring Provider Nurse Practitioner Women's Health; Visit Provider Nurse Practitioner Women's Health
DX: Z11.3 Encounter for screening for infections with a predominantly sexual mode of transmission (principal); Z13.21 Encounter for screening for nutritional disorder; Z13.29 Encounter for screening for other suspected endocrine disorder; Z13.220 Encounter for screening for lipoid disorders; Z13.1 Encounter for screening for diabetes mellitus
CPT/HCPCS: 36415; 80061; 82306; 82947; 84443; 87491; 87591

== ENCOUNTER → 2022-05-14 | Outpatient (CLI) | payer OTHER, SELFPAY ==
[2022-05-14 12:55] LABS: AST(SGOT) 16 U/L (15-37); Absolute Lymphocyte Count 1.32 X10^3/uL (0.83-4.51); Absolute Neutrophil Count 3.7 X10^3/uL (2.0-7.7); Alanine Aminotransfer ALT/SGPT 20 U/L (13-56); Anion Gap 8 (5-15); BUN 10 mg/dL (7-18); BUN/Creat Ratio 12.7 RATIO (10-20); Basophil# 0.03 X10^3/uL; Basophil% 0.5 % (0-1); Calcium,Total 9.7 mg/dL (8.5-10.1); Chloride 106 mmol/L (98-107); Creatinine, Serum 0.78 mg/dL (0.55-1.02); EST Glomerular Filtration Rate 95 mL/min (>60); Eosinophil# 0.25 X10^3/uL; Eosinophils% 4.4 % (0-5); Est Glom Filt Rate - Afr Amer 115 mL/min (>60); Glucose 90 mg/dL (74-106); Hematocrit 41.4 % (37-47); Hemoglobin 13.5 g/dL (12.0-15.0); Lymphocyte # 1.32 X10^3/ul (0.83-4.51); Lymphocyte % 23.1 % (19-41); Mean Corp Hgb Conc 32.6 g/dL (32-36); Mean Corpuscular Hgb 28.7 pg (27.0-32.0); Mean Corpuscular Volume 87.9 fL (81-99); Mean Platelet Vol. 12.5 fl (6.2-12.0); Monocyte# 0.43 X10^3/uL; Monocyte% 7.5 % (0-10); NRBC Flagged by Analyzer 0 % (0-5); Neutrophil # 3.68 X10^3/uL (2.7-7.7); Neutrophil % 64.3 % (47-70); Platelet Count 190 K/mm3 (150-450); Potassium 3.8 mmol/L (3.5-5.1); RBC Distribution Width SD 38.5 fl (35.1-43.9); Red Blood Count 4.71 M/mm3 (4.2-5.4); Sodium Level 138 mmol/L (136-145); White Blood Count 5.7 K/mm3 (4.4-11.0)
[2022-05-14 13:31] LABS: Hepatitis B Surface Antibody Non-Reactive; Hepatitis B Surface Antigen Non-Reactive (Nonreactive); Hepatitis C Antibody Non-Reactive (Nonreactive)
[2022-05-16 17:07] LABS: QNTFERON TB Mitogen Value > 10.00 IU/mL (.); QNTFERON TB Nil Value 0.03 IU/mL (.); QNTFERON TB1+ Ag Value 0.04 IU/mL (.); QNTFERON TB2+ Ag Value 0.03 IU/mL (.)
[2022-05-16 20:58] LABS: Hepatitis B Core Ab Total Negative (Negative); QNTIFERON TB Positive Criteria Negative (Negative)
== END | disposition home or self-care (01) ==
LOC: MTLAB 10:09
PROVIDERS: PCP Family Medicine
DX: L40.0 Psoriasis vulgaris (principal); D48.5 Neoplasm of uncertain behavior of skin; Z79.899 Other long term (current) drug therapy; Z79.620 Long term (current) use of immunosuppressive biologic
CPT/HCPCS: 36415; 80048; 84450; 84460; 85025; 86480; 86704; 86706; 86803; 87340

== ENCOUNTER 2022-09-01 12:46 | Emergency (ER) | payer OTHER, SELFPAY ==
[2022-09-01 12:47] VITALS: BP 144/91; PULSE 111; RESP 18; TEMP 37; O2SAT 99
[2022-09-01 13:04] VITALS: BMI 41.9
--- NOTE | 2022-09-01 13:17 | EDS_ITS ---
HPI <Dr. Mike Webster MD - Last Filed: 09/01/22 17:15> HPI - GI History of Present Illness Chief Complaint: Abd Pain Informant: patient Narrative Narrative: This morning about 6 hours ago patient started having diffuse abdominal pain, nausea, diarrhea. She had 4-5 bouts of watery nonbloody diarrhea, no melena, she has not vomited. She has had chills but unknown if she has had any true fevers. The pain started radiating into her low back, it has been moving around. She has had diarrhea and is not necessarily resolving right afterwards, but she states the pain has been waxing and waning and currently she has no abdominal pain, just her low back nonlateralizing and without any urinary symptoms. She states at times the back pain will go away and then she will feel it in another part of her back and then it will change and move again. Same with the abdominal pain. Boyfriend has diarrhea lately, and she has kissed him. She has not traveled out of the area recently. She currently is on doxycycline for psoriasis and acne and has been on that for a month or 2. No history of C. difficile. No suspicious food intake, foods that she is eating her boyfriend has as well. History of her gallbladder out. [facility] <Dr. Mike Webtser MD - Last Filed: 09/01/22 17:15> [facility] Medical History Cholelithiases GERD (gastroesophageal reflux disease) History of tetanus, diphtheria, and acellular pertussis booster vaccination ( Tdap) Influenza vaccination declined IUD (intrauterine device) in place Rash Smoker Wears glasses Home Medications cyclobenzaprine 10 mg tablet 10 mg PO TID PRN Muscle Spasm #12 TABLETS 09/01/22 [Rx Last Taken Unknown] doxycycline monohydrate 100 mg capsule 100 mg PO DAILY 09/01/22 [History Last Taken Unknown] ondansetron 4 mg disintegrating tablet 8 mg PO Q8H PRN PRN Nausea #20 tabs 09/01/22 [Rx Last Taken Unknown] oxycodone-acetaminophen 5 mg-325 mg tablet (Percocet) 1 tab PO Q6H PRN pain 3 days #10 tabs 09/01/22 [Rx Last Taken Unknown] spironolactone 100 mg tablet 100 mg PO DAILY 09/01/22 [History Last Taken Unknown] Allergy/AdvReac Type Severity Reaction Status Date / Time No Known Allergies Allergy Verified 10/21/21 08:09 Family History Grandmother Diabetes Heart disease Grandfather Skin cancer Surgical History S/P laparoscopic cholecystectomy Status post surgical removal of malignant neoplasm of skin Social History sexually active: Yes Smoking Status: Current some day smoker tobacco type: cigarettes alcohol intake: never details: occasionally substance use type: does not use caffeine: Yes what type of physical activity do you participate in: none seatbelt use: always do you feel safe at home: Yes 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 Mike Webster MD - Last Filed: 09/01/22 17:15> ROS ED Constitutional Constitutional ED: Reports chills and malaise Eyes Eyes: Denies change in vision or diplopia ENT ENT ED: Denies rhinorrhea or sore throat Cardiovascular Cardiovascular: Denies chest pain or palpitations Respiratory/Chest Respiratory/Chest: Denies cough or dyspnea Gastrointestinal Gastrointestinal: Reports abdominal pain, diarrhea and nausea; Denies melena or vomiting Genitourinary Genitourinary ED: Denies dysuria or hematuria Musculoskeletal Musculoskeletal: Reports back pain; Denies neck pain Integumentary Denies abscess or rash Neurologic Neurologic: Denies headache(s), paresthesias or weakness Psychiatric Psychiatric: Denies anxiety or suicidal thoughts EXAM <Dr. Mike Webster MD - Last Filed: 09/01/22 17:15> Physical Exam Const Vital Signs: 09/01/22 12:47 09/01/22 15:45 09/01/22 17:05 Temperature 98.6 F Temperature Source Temporal Pulse Rate 111 H 102 H 111 H Respiratory Rate 18 Blood Pressure 144/91 H Blood Pressure Mean 108 Pulse Ox 99 97 100 Oxygen Delivery Method Room Air Room Air Room Air Positive well nourished and well developed General Appearance ED: well developed and NAD HEENT Reports moist mucous membranes normocephalic and atraumatic Eyes PERRL and EOMs intact bilaterally Neck full ROM and supple Resp normal respiratory effort and clear to auscultation bilaterally Cardio regular rate, regular rhythm and no murmurs Rate: tachycardic GI non-tender and non-distended Auscultation: normoactive bowel sounds Palpation: soft Back/Spine no CVA tenderness Back/Spine Narrative: nml inspection General Back: other FROM Lumbar Spine / Lower Back: Negative for lumbar spinal tenderness Extremity normal to inspection General Extremety ED: Negative for edema, pulses abnormal or tenderness General Extremity: Negative for edema or pulses abnormal Neuro oriented x3, CN's II-XII intact bilaterally and no sensory deficits noted Sensorium / Orientation: awake and alert Motor Exam: strength 5/5 throughout Psych Mood & Affect: anxious and tearful Skin no rashes or lesions noted and no wounds <Dr. Haritha Leung DO - Last Filed: 09/01/22 18:24> Physical Exam Const Vital Signs: 09/01/22 12:47 09/01/22 15:45 09/01/22 17:05 Temperature 98.6 F Temperature Source Temporal Pulse Rate 111 H 102 H 111 H Respiratory Rate 18 Blood Pressure 144/91 H Blood Pressure Mean 108 Pulse Ox 99 97 100 Oxygen Delivery Method Room Air Room Air Room Air MDM <Dr. Mike Webster MD - Last Filed: 09/01/22 17:15> [facility] Narrative Medical decision making narrative: I suspect she is having gastroenteritis and bowel/colonic pain that is given her the abdominal and back pain. Therefore at this time I do not think she needs emergent imaging, but we started with labs including liver enzymes and lipase, IV fluids, pain and nausea medications. Toradol and Zofran did help transiently, she was also given a GI cocktail and dicyclomine, since her symptoms could be consistent with intestinal spasm given the vomiting and diarrhea which sounds more like a viral syndrome for her. She has microscopic hematuria without signs of infection on urinalysis, she has had no gross hematuria, negative, and she states that her back pain was getting more severe after the Toradol started wearing off, and she has family members with kidney stones. I do not think her symptoms and exam are consistent with ureterolithiasis, but she said was having such severe low back pain that I did end up performing a CT abdomen/pelvis without contrast to evaluate the retroperitoneum. I reviewed the images and report which I agree with, basically negative/normal. The retroperitoneum looks normal. There is a left ovarian cyst, there is a calcification that is nonspecific in the uterus along with an IUD that looks unremarkable, and the rest of the CT is unremarkable with no signs of inflammatory changes in the bowel. I reexamined the patient while she was in a lot more discomfort, prior to getting her more analgesics, and reexamined her abdomen. Soft, completely nontender throughout, making an acute ovarian/uterine process much less likely. Also did straight leg raises, they were negative/normal did not increase her back pain or create any radicular symptoms. At this point I am given her morphine and Norflex, she is neurovascular intact distally in both lower extremities does not have cauda equina syndrome, will try to get her feeling better here and see if we can discharge her with analgesics. She was a little prerenal, the IV fluids should have taken care of that, she does not have an and Guyon gap to suggest an acute metabolic acidosis and I see nothing dangerous on her exam or her ancillaries. She has a nonspecific predominance of neutrophils without bandemia, with a total white blood count of 9. Do not have a urine that looks like infection as she has no CVA tenderness to suggest a renal etiology here, so the etiology of her pain is unknown and could be muscular. Lab Data Attestation: I reviewed the patient's lab results. Labs: Laboratory Results - last 24 hr 09/01/22 09/01/22 09/01/22 13:05 13:05 13:40 WBC 9.0 RBC 4.96 Hgb 14.4 Hct 42.7 MCV 86.1 MCH 29.0 MCHC 33.7 RDW Std Deviation 40.1 RDW Coeff of Brigido 13.0 Plt Count 134 L MPV 12.7 H Immature Gran % (Auto) 0.600 Neut % (Auto) 90.7 H Lymph % (Auto) 3.3 L [place] % (Auto) 4.6 Eos % (Auto) 0.6 Baso % (Auto) 0.2 Absolute Neuts (auto) 8.2 H Absolute Lymphs (auto) 0.30 L Nucleated RBC % 0 Differential Comment SCANNED Sodium 139 Potassium 3.8 Chloride 111 H Carbon Dioxide 19.0 L Anion Gap 9 BUN 16 Creatinine 0.87 Estim Creat Clear Calc 96.13 Est GFR (MDRD) Af Amer 102 Est GFR (MDRD) Non-Af 84 BUN/Creatinine Ratio 18.4 Glucose 98 Calcium 8.8 Total Bilirubin 0.50 AST 18 ALT 18 Alkaline Phosphatase 72 Total Protein 7.2 Albumin 3.8 Globulin 3.4 Albumin/Globulin Ratio 1.1 Lipase 19 Urine Color Yellow Urine Clarity Sl. Cloudy Urine pH 8.0 Ur Specific Orient 1.010 Urine Protein 15 H Urine Glucose (UA) Normal Urine Ketones Negative Urine Occult Blood 150 H Urine Nitrite Negative Urine Bilirubin Negative Urine Urobilinogen 1 H Ur Leukocyte Esterase 25 H Urine RBC 10-25 SEEN Urine WBC 0-5 SEEN Ur Squamous Epith Cells 0-5 SEEN Urine Bacteria 1+ Urine Mucus 0 SEEN Urine Test 09/01/22 13:40 WBC RBC Hgb Hct MCV MCH MCHC RDW Std Deviation RDW Coeff of Brigido Plt Count MPV Immature Gran % (Auto) Neut % (Auto) Lymph % (Auto) [place] % (Auto) Eos % (Auto) Baso % (Auto) Absolute Neuts (auto) Absolute Lymphs (auto) Nucleated RBC % Differential Comment Sodium Potassium Chloride Carbon Dioxide Anion Gap BUN Creatinine Estim Creat Clear Calc Est GFR (MDRD) Af Amer Est GFR (MDRD) Non-Af BUN/Creatinine Ratio Glucose Calcium Total Bilirubin AST ALT Alkaline Phosphatase Total Protein Albumin Globulin Albumin/Globulin Ratio Lipase Urine Color Urine Clarity Urine pH Ur Specific Orient Urine Protein Urine Glucose (UA) Urine Ketones Urine Occult Blood Urine Nitrite Urine Bilirubin Urine Urobilinogen Ur Leukocyte Esterase Urine RBC Urine WBC Ur Squamous Epith Cells Urine Bacteria Urine Mucus Urine Test Negative Radiography Diagnostic Testing: Clinical Impression(s) from Imaging Studies Abdomen/Pelvis CT 09/01/22 15:10 IMPRESSION: 1. No evidence of renal, ureteral or urinary bladder abnormality. 2. Interval placement of an IUD. 3. Left ovarian cyst. 4. Resolution of the possible colitis seen on the previous study. 5. No other interval change. Electronically Signed: Kee Neumann DO at 16:34 EDT Reading Location ID and State: [address] [place] [address] Tel [phone], Service support , <Dr. Haritha Leung DO - Last Filed: 09/01/22 18:24> [facility] MDM Narrative Medical decision making narrative: I suspect she is having gastroenteritis and bowel/colonic pain that is given her the abdominal and back pain. Therefore at this time I do not think she needs emergent imaging, but we started with labs including liver enzymes and lipase, IV fluids, pain and nausea medications. Toradol and Zofran did help transiently, she was also given a GI cocktail and dicyclomine, since her symptoms could be consistent with intestinal spasm given the vomiting and diarrhea which sounds more like a viral syndrome for her. She has microscopic hematuria without signs of infection on urinalysis, she has had no gross hematuria, negative, and she states that her back pain was getting more severe after the Toradol started wearing off, and she has family members with kidney stones. I do not think her symptoms and exam are consistent with ureterolithiasis, but she said was having such severe low back pain that I did end up performing a CT abdomen/pelvis without contrast to evaluate the retroperitoneum. I reviewed the images and report which I agree with, basically negative/normal. The retroperitoneum looks normal. There is a left ovarian cyst, there is a calcification that is nonspecific in the uterus along with an IUD that looks unremarkable, and the rest of the CT is unremarkable with no signs of inflammatory changes in the bowel. I reexamined the patient while she was in a lot more discomfort, prior to getting her more analgesics, and reexamined her abdomen. Soft, completely nontender throughout, making an acute ovarian/uterine process much less likely. Also did straight leg raises, they were negative/normal did not increase her back pain or create any radicular symptoms. At this point I am given her morphine and Norflex, she is neurovascular intact distally in both lower extremities does not have cauda equina syndrome, will try to get her feeling better here and see if we can discharge her with analgesics. She was a little prerenal, the IV fluids should have taken care of that, she does not have an and Guyon gap to suggest an acute metabolic acidosis and I see nothing dangerous on her exam or her ancillaries. She has a nonspecific predominance of neutrophils without bandemia, with a total white blood count of 9. Do not have a urine that looks like infection as she has no CVA tenderness to suggest a renal etiology here, so the etiology of her pain is unknown and could be muscular. Patient signed out to me for repeat evaluation after medication. Patient heart rate is improving while in the room and is 99 bpm. Pain is resolved. She states currently has no pain. Repeat abdominal exam is soft and nontender. She has equal pulses in all 4 extremities. Given that her pain is resolved she will continue her bolus of IV fluids and be discharged home with prescriptions previously written. Lab Data Labs: Laboratory Results - last 24 hr 09/01/22 09/01/22 09/01/22 13:05 13:05 13:40 WBC 9.0 RBC 4.96 Hgb 14.4 Hct 42.7 MCV 86.1 MCH 29.0 MCHC 33.7 RDW Std Deviation 40.1 RDW Coeff of Brigido 13.0 Plt Count 134 L MPV 12.7 H Immature Gran % (Auto) 0.600 Neut % (Auto) 90.7 H Lymph % (Auto) 3.3 L [place] % (Auto) 4.6 Eos % (Auto) 0.6 Baso % (Auto) 0.2 Absolute Neuts (auto) 8.2 H Absolute Lymphs (auto) 0.30 L Nucleated RBC % 0 Differential Comment SCANNED Sodium 139 Potassium 3.8 Chloride 111 H Carbon Dioxide 19.0 L Anion Gap 9 BUN 16 Creatinine 0.87 Estim Creat Clear Calc 96.13 Est GFR (MDRD) Af Amer 102 Est GFR (MDRD) Non-Af 84 BUN/Creatinine Ratio 18.4 Glucose 98 Calcium 8.8 Total Bilirubin 0.50 AST 18 ALT 18 Alkaline Phosphatase 72 Total Protein 7.2 Albumin 3.8 Globulin 3.4 Albumin/Globulin Ratio 1.1 Lipase 19 Urine Color Yellow Urine Clarity Sl. Cloudy Urine pH 8.0 Ur Specific Orient 1.010 Urine Protein 15 H Urine Glucose (UA) Normal Urine Ketones Negative Urine Occult Blood 150 H Urine Nitrite Negative Urine Bilirubin Negative Urine Urobilinogen 1 H Ur Leukocyte Esterase 25 H Urine RBC 10-25 SEEN Urine WBC 0-5 SEEN Ur Squamous Epith Cells 0-5 SEEN Urine Bacteria 1+ Urine Mucus 0 SEEN Urine Test 09/01/22 13:40 WBC RBC Hgb Hct MCV MCH MCHC RDW Std Deviation RDW Coeff of Brigido Plt Count MPV Immature Gran % (Auto) Neut % (Auto) Lymph % (Auto) [place] % (Auto) Eos % (Auto) Baso % (Auto) Absolute Neuts (auto) Absolute Lymphs (auto) Nucleated RBC % Differential Comment Sodium Potassium Chloride Carbon Dioxide Anion Gap BUN Creatinine Estim Creat Clear Calc Est GFR (MDRD) Af Amer Est GFR (MDRD) Non-Af BUN/Creatinine Ratio Glucose Calcium Total Bilirubin AST ALT Alkaline Phosphatase Total Protein Albumin Globulin Albumin/Globulin Ratio Lipase Urine Color Urine Clarity Urine pH Ur Specific Orient Urine Protein Urine Glucose (UA) Urine Ketones Urine Occult Blood Urine Nitrite Urine Bilirubin Urine Urobilinogen Ur Leukocyte Esterase Urine RBC Urine WBC Ur Squamous Epith Cells Urine Bacteria Urine Mucus Urine Test Negative Radiography Diagnostic Testing: Clinical Impression(s) from Imaging Studies Abdomen/Pelvis CT 09/01/22 15:10 IMPRESSION: 1. No evidence of renal, ureteral or urinary bladder abnormality. 2. Interval placement of an IUD. 3. Left ovarian cyst. 4. Resolution of the possible colitis seen on the previous study. 5. No other interval change. Electronically Signed: Kee Neumann DO at 16:34 EDT Reading Location ID and State: [address] [place] [address] Tel [phone], Service support , Discharge Plan Triage Chief Complaint: Abd Pain ED Provider: Mike Webster Dx/Rx/DC Orders Clinical Impression: Low back pain, Gastroenteritis, Mild dehydration, Asymptomatic microscopic hematuria Instructions: ED Back Pain (Acute or Chronic), ED Gastroenteritis, Viral (Adult) Prescriptions: New oxycodone-acetaminophen [Percocet] 5-325 mg tablet 1 tab PO Q6H PRN (Reason: pain) 3 Days Qty: 10 0RF cyclobenzaprine [cyclobenzaprine] 10 mg tablet 10 mg PO TID PRN (Reason: Muscle Spasm) Qty: 12 0RF ondansetron [ondansetron] 4 mg tablet,disintegrating 8 mg PO Q8H PRN PRN (Reason: Nausea) Qty: 20 0RF No Action spironolactone 100 mg tablet 100 mg PO DAILY doxycycline monohydrate 100 mg capsule 100 mg PO DAILY Primary Care Provider: Sohail Calderon Referrals: Sohail Calderon MD [Primary Care Provider] - As soon as possible Disposition Disposition: Home, Self Care
[2022-09-01 13:31] LABS: Absolute Neutrophil Count 8.2 X10^3/uL (2.0-7.7); Basophil# 0.02 X10^3/uL; Basophil% 0.2 % (0-1); Eosinophil# 0.05 X10^3/uL; Eosinophils% 0.6 % (0-5); Hematocrit 42.7 % (37-47); Hemoglobin 14.4 g/dL (12.0-15.0); Lymphocyte % 3.3 % (19-41); Mean Corp Hgb Conc 33.7 g/dL (32-36); Mean Corpuscular Volume 86.1 fL (81-99); Mean Platelet Vol. 12.7 fl (6.2-12.0); Monocyte# 0.41 X10^3/uL; Monocyte% 4.6 % (0-10); NRBC Flagged by Analyzer 0 % (0-5); Neutrophil # 8.16 X10^3/uL (2.7-7.7); Neutrophil % 90.7 % (47-70); POSITIVE DIFFERENTIAL YES; Platelet Count 134 K/mm3 (150-450); RBC Distribution Width SD 40.1 fl (35.1-43.9); Red Blood Count 4.96 M/mm3 (4.2-5.4)
[2022-09-01 13:32] LABS: Differential Indicated SCAN CRITERIA MET
[2022-09-01] MEDS: Ondansetron 4 MG/2 ML Vial IV (13:35)
[2022-09-01] MEDS: 0.9% Normal Saline 1,000 ML 1000 ML IV (13:35)
[2022-09-01] MEDS: Ketorolac 15 MG/ML Vial IV (13:36)
[2022-09-01] MEDS: Dicyclomine 10 MG Capsule 20 MG PO (13:36)
[2022-09-01 13:45] LABS: Mucous, Urine 0 SEEN /hpf (<or=2+)
[2022-09-01] MEDS: Mag Hydrox/Al Hydrox/Simeth 30 ML UDC PO (13:45)
[2022-09-01 13:48] LABS: Color, Urine Yellow (Yellow); Glucose, Dipstick Normal (Normal); Ketone-Dipstick Negative (Negative); Leukocyte Esterase-Dipstick 25 /ul (Negative); Nitrite-Dipstick Negative (Negative); Occult Blood-Urine 150 /ul (Negative); Protein-Dipstick 15 mg/dl (Negative); Urine Bilirubin Dipstick Negative (Negative); Urine Clarity Sl. Cloudy (Clear); Urine Urobilinogen 1 mg/dl (Normal)
[2022-09-01 13:48] LABS: ALB/GLOB Ratio 1.1 RATIO (0.9-2.4); AST(SGOT) 18 U/L (15-37); Alanine Aminotransfer ALT/SGPT 18 U/L (13-56); Albumin, Serum 3.8 g/dL (3.2-5.0); Alkaline Phosphatase 72 U/L (45-117); Anion Gap 9 (5-15); BUN 16 mg/dL (7-18); BUN/Creat Ratio 18.4 RATIO (10-20); Calcium,Total 8.8 mg/dL (8.5-10.1); Chloride 111 mmol/L (98-107); Creatinine, Serum 0.87 mg/dL (0.55-1.02); EST Glomerular Filtration Rate 84 mL/min (>60); Est Glom Filt Rate - Afr Amer 102 mL/min (>60); Estimated Creatinine Clearance 96.13 ml/min; Globulin 3.4 g/dL (2.2-4.2); Glucose 98 mg/dL (74-106); Lipase 19 U/L (13-75); Potassium 3.8 mmol/L (3.5-5.1); Protein, Total 7.2 g/dL (6.4-8.2); Sodium Level 139 mmol/L (136-145)
[2022-09-01 13:50] LABS: Differential Comment SCANNED
[2022-09-01 13:54] LABS: Red Blood Cells-Urine 10-25 SEEN /hpf (0-5); Squamous Epithelial Cells - UA 0-5 SEEN /hpf (5-10); White Blood Cells 0-5 SEEN /hpf (0-5)
[2022-09-01 13:55] LABS: Bacteria 1+ /hpf (None Seen)
--- NOTE | 2022-09-01 15:10 | CT_ITS ---
STUDY: CT ABDOMEN AND PELVIS WITHOUT CONTRAST REASON FOR EXAM: Female, 27 years old. Abdominal pain nausea and hematuria beginning this morning. Flank pain. RADIATION DOSAGE (If Supplied By Facility): CTDIvol = ( 22.61 ) mGy, DLP = ( 1211.18 ) mGycm TECHNIQUE: Transaxial images were obtained from the dome of the diaphragm to the symphysis pubis without oral contrast, and without intravenous contrast. Sagittal and coronal images were reconstructed. Individualized dose optimization techniques were used for this CT. COMPARISON: August 22, 2020 FINDINGS: The visualized lung bases are unremarkable. The visualized portions of the heart are within normal limits. Normal liver. The gallbladder is absent, and is thought to have been surgically removed. Splenomegaly. Normal pancreas. Normal bilateral adrenal glands. Normal right kidney. Normal left kidney. Normal visualized ureters. Normal visualized stomach. Normal small intestine. Normal colon. There is non-visualization of the appendix. Normal abdominal aorta. Normal inferior vena cava. Normal retroperitoneum. Normal urinary bladder. There is an IUD in the uterus. There is a small subserosal calcification in the left posterior fundus. There is a 3.2 x 3.3 x 3.1 cm cyst in the left ovary. Normal right ovary. No pelvic lymphadenopathy. No free air or free fluid is seen within the abdominal cavity. Normal abdominal wall. Normal osseous structures. CT/Abdomen/Pelvis without Cont IMPRESSION: 1. No evidence of renal, ureteral or urinary bladder abnormality. 2. Interval placement of an IUD. 3. Left ovarian cyst. 4. Resolution of the possible colitis seen on the previous study. 5. No other interval change. Electronically Signed: Kee Neumann DO at 16:34 EDT Reading Location ID and State: [id number] Tel [phone], Service support ,
[2022-09-01 15:45] VITALS: PULSE 102; O2SAT 97
[2022-09-01 16:00] LABS: Internal QC Validated? YES +Cl - CLEAR BKGD; Pregnancy, Urine Negative Negative
[2022-09-01] MEDS: Morphine 4 MG/ML Syringe IV (16:56)
[2022-09-01] MEDS: Orphenadrine 60 MG/2 ML Ampul IV (17:02)
[2022-09-01 17:05] VITALS: PULSE 111; O2SAT 100
[2022-09-01] MEDS: 0.9% Normal Saline 1,000 ML 999 ML IV (17:19)
== END 2022-09-01 19:00 | disposition home or self-care (01) ==
PROVIDERS: Emergency Provider Emergency Medicine; PCP Family Medicine; Visit Provider Emergency Medicine
DX: M54.50 Low back pain, unspecified (principal); K52.9 Noninfective gastroenteritis and colitis, unspecified; E86.0 Dehydration; R31.21 Asymptomatic microscopic hematuria; F17.210 Nicotine dependence, cigarettes, uncomplicated
CPT/HCPCS: 74176; 80053; 81001; 81025; 83690; 85025; 96361; 96374; 96375; 99282; J7030; A4216; J2405

== ENCOUNTER → 2022-09-17 | Outpatient (CLI) | payer OTHER, SELFPAY ==
[2022-09-17 15:07] LABS: HIV - WCH Non-Reactive (Nonreactive); Syphilis Antibodies Non-reactive
[2022-09-20 11:08] LABS: Chlamydia By Nucleic Acid AMP Negative (Negative); Gonococcus By Nucleic Acid AMP Negative (Negative)
== END | disposition home or self-care (01) ==
PROVIDERS: PCP Family Medicine; Referring Provider Advanced Practice Midwife; Visit Provider Advanced Practice Midwife
DX: Z11.3 Encounter for screening for infections with a predominantly sexual mode of transmission (principal)
CPT/HCPCS: 36415; 86703; 86780; 87070; 87205; 87491; 87591

== ENCOUNTER → 2022-10-22 | Outpatient (CLI) | payer OTHER, SELFPAY ==
[2022-10-27 19:33] LABS: HPV Reflexed? NOT INDICATED
== END | disposition home or self-care (01) ==
PROVIDERS: PCP Family Medicine; Referring Provider Nurse Practitioner Women's Health; Visit Provider Nurse Practitioner Women's Health
DX: Z12.4 Encounter for screening for malignant neoplasm of cervix (principal)
CPT/HCPCS: 88175; G0145

== ENCOUNTER → 2023-03-10 | Outpatient (CLI) | payer OTHER, SELFPAY ==
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
[2023-03-10 12:19] LABS: Absolute Lymphocyte Count 1.13 X10^3/uL (0.83-4.51); Absolute Neutrophil Count 3.1 X10^3/uL (2.0-7.7); Basophil# 0.02 X10^3/uL; Basophil% 0.4 % (0-1); Eosinophil# 0.09 X10^3/uL; Eosinophils% 1.9 % (0-5); Hematocrit 41.7 % (37-47); Hemoglobin 13.6 g/dL (12.0-15.0); Lymphocyte # 1.13 X10^3/ul (0.83-4.51); Lymphocyte % 23.8 % (19-41); Mean Corp Hgb Conc 32.6 g/dL (32-36); Mean Corpuscular Hgb 29.2 pg (27.0-32.0); Mean Corpuscular Volume 89.5 fL (81-99); Mean Platelet Vol. 12.4 fl (6.2-12.0); Monocyte# 0.41 X10^3/uL; Monocyte% 8.6 % (0-10); NRBC Flagged by Analyzer 0 % (0-5); Neutrophil # 3.07 X10^3/uL (2.7-7.7); Neutrophil % 64.9 % (47-70); Platelet Count 160 K/mm3 (150-450); RBC Distribution Width CV 12.4 % (11.6-14.6); RBC Distribution Width SD 39.9 fl (35.1-43.9); Red Blood Count 4.66 M/mm3 (4.2-5.4); White Blood Count 4.7 K/mm3 (4.4-11.0)
[2023-03-10 12:40] LABS: Vitamin D,25 Hydroxy 43.2 ng/mL
[2023-03-10 12:42] LABS: ALB/GLOB Ratio 1.2 RATIO (0.9-2.4); AST(SGOT) 13 U/L (15-37); Alanine Aminotransfer ALT/SGPT 15 U/L (13-56); Albumin, Serum 3.8 g/dL (3.2-5.0); Alkaline Phosphatase 82 U/L (45-117); Anion Gap 6 (5-15); BUN 9 mg/dL (7-18); Calcium,Total 8.8 mg/dL (8.5-10.1); Chloride 108 mmol/L (98-107); Creatinine, Serum 0.75 mg/dL (0.55-1.02); EST Glomerular Filtration Rate 100 mL/min (>60); Est Glom Filt Rate - Afr Amer 121 mL/min (>60); Globulin 3.3 g/dL (2.2-4.2); Glucose 82 mg/dL (74-106); Potassium 3.9 mmol/L (3.5-5.1); Protein, Total 7.1 g/dL (6.4-8.2); Sodium Level 139 mmol/L (136-145); T4 Free Direct 0.83 ng/dL (0.76-1.46); Thyroid Stim Hormone (TSH) 2.84 uIU/mL (0.358-3.74)
== END | disposition home or self-care (01) ==
LOC: MTLAB 10:52
PROVIDERS: PCP Family Medicine; Referring Provider Family Medicine; Visit Provider Family Medicine
DX: E66.9 Obesity, unspecified (principal); E55.9 Vitamin D deficiency, unspecified; R53.83 Other fatigue
CPT/HCPCS: 36415; 80053; 82306; 84439; 84443; 85025

== ENCOUNTER → 2023-11-03 | Outpatient (CLI) | payer OTHER, SELFPAY ==
[2023-11-06 04:07] LABS: Chlamydia By Nucleic Acid AMP Negative (Negative); Gonococcus By Nucleic Acid AMP Negative (Negative)
== END | disposition home or self-care (01) ==
LOC: LABSPEC 12:58
PROVIDERS: PCP Family Medicine; Referring Provider Nurse Practitioner Women's Health; Visit Provider Nurse Practitioner Women's Health
DX: Z11.3 Encounter for screening for infections with a predominantly sexual mode of transmission (principal)
CPT/HCPCS: 87491; 87591

== ENCOUNTER 2023-12-29 10:13 | Outpatient (CLI) | payer OTHER, SELFPAY ==
--- NOTE | 2023-12-29 10:18 | US_ITS ---
EXAM: US PELVIS TRANSVAGINAL CLINICAL INDICATION: IUD placement TECHNIQUE: Transvaginal pelvic ultrasound was performed with grayscale and color Doppler imaging. Transvaginal imaging was used for better evaluation of the endometrium and adnexa. COMPARISON: No relevant prior studies available. FINDINGS: UTERUS/CERVIX: The uterus measures 11.7 x 5.4 x 6.6 cm. The endometrium measures 6 mm. Anteverted. There is no uterine mass. RIGHT OVARY: Right ovary measures 3.9 x 2.6 x 3.4 cm. Blood flow is present in the right ovary. LEFT OVARY: The left ovary measures 3.6 x 2.9 x 2.7 cm. Blood flow is present in the left ovary. FREE FLUID: None. BLADDER: Empty bladder which cannot be evaluated with this probe. TUBES, LINES AND DEVICES: There is an echogenic structure within the endometrium compatible with an intrauterine device. US/Transvaginal Non- IMPRESSION: Intrauterine device in place. There are no acute abnormalities. Electronically Signed: Farhad Munoz MD at 0:15 EDT ,
== END 2023-12-29 23:59 | disposition home or self-care (01) ==
LOC: US 10:17
PROVIDERS: PCP Family Medicine; Referring Provider Advanced Practice Midwife; Visit Provider Advanced Practice Midwife
DX: R10.30 Lower abdominal pain, unspecified (principal)
CPT/HCPCS: 76830